=== PATIENT | female | born 1935 | race African-American/Black ===

== ENCOUNTER 2017-05-11 15:25 | Inpatient (IN) | payer MEDICARE, OTHER ==
[~2017-05-11] VITALS: Ht 170.2 cm; Wt 106.1 kg
[2017-05-11] MEDS ORDERED: BACLOFEN10 MG ORAL (16:08)
[2017-05-11] MEDS ORDERED: CARDIZEM CD240 MG ORAL (16:08)
[2017-05-11] MEDS ORDERED: NEURONTIN100 MG ORAL (16:08)
[2017-05-11] MEDS ORDERED: LEVALBUTER0.31 MG/3 IH (16:08)
[2017-05-11] MEDS ORDERED: DOCUSATE SODIU100 MG ORAL (16:08)
[2017-05-11] MEDS ORDERED: FUROSEMIDE40 MG ORAL (16:08)
[2017-05-11] MEDS ORDERED: SYNTHROID100 MCG ORAL (16:08)
[2017-05-11] MEDS ORDERED: CATAPRES0.1 MG ORAL (16:08)
[2017-05-11] MEDS ORDERED: ELIQUIS5 MG PO (16:08)
[2017-05-11] MEDS ORDERED: TYLENOL EXTRA500 MG ORAL (16:08)
[2017-05-11] MEDS ORDERED: ATORVASTATIN CA20 MG ORAL (16:08)
[2017-05-11] MEDS ORDERED: AMBIEN5 MG ORAL (16:08)
[2017-05-11] MEDS ORDERED: VITAMIN D400 INTLU ORAL (16:08)
[2017-05-11] MEDS ORDERED: SILDENAFIL20 MG ORAL (16:08)
[2017-05-11 16:25] LABS: BASOPHILS % (AUTO) 0.6 % (0.0-2.0); EOSINOPHILS % (AUTO) 3.5 % (0.0-3.0); HEMOGLOBIN 13.1 G/DL (12.0-16.0); LYMPHOCYTES % (AUTO) 17.7 % (20.0-45.0); MEAN CORPUSCULAR VOLUME 97 FL (80-99); MONOCYTES % (AUTO) 8.2 % (1.0-10.0); PLATELET COUNT 208 K/UL (150-450); RED BLOOD COUNT 4.33 M/UL (4.20-5.40); RED CELL DISTRIBUTION WIDTH 12.2 % (11.6-14.8); WHITE BLOOD COUNT 5.8 K/UL (4.8-10.8)
[2017-05-11 16:31] LABS: ANION GAP 8 mmol/L (5-15); BLOOD UREA NITROGEN 26 mg/dL (7-18); CALCIUM 9.2 MG/DL (8.5-10.1); CARBON DIOXIDE 31 MMOL/L (21-32); CHLORIDE 102 MMOL/L (98-107); POTASSIUM 3.9 MMOL/L (3.5-5.1); SODIUM 140 MMOL/L (136-145)
[2017-05-11 16:36] LABS: APPEARANCE,URINE CLEAR; BILIRUBIN, URINE NEGATIVE (NEGATIVE); COLOR,URINE PALE YELLOW; GLUCOSE, URINE (UA) NEGATIVE (NEGATIVE); KETONES,URINE NEGATIVE (NEGATIVE); LEUKOCYTE ESTERASE ,URINE 2+ (NEGATIVE); NITRITE,URINE NEGATIVE (NEGATIVE); PH,URINE 6 (4.5-8.0); PROTEIN,URINE NEGATIVE (NEGATIVE); UROBILINOGEN,URINE NORMAL MG/DL (0.0-1.0)
[2017-05-11 16:44] LABS: ALANINE AMINOTRANSFERASE 22 U/L (12-78); ALBUMIN 3.1 G/DL (3.4-5.0); ALBUMIN/GLOBULIN RATIO 0.7 (1.0-2.7); ALKALINE PHOSPHATASE 71 U/L (46-116); ASPARTATE AMINO TRANSFERASE 18 U/L (15-37); BILIRUBIN,TOTAL 0.1 MG/DL (0.2-1.0); CKMB < 0.5 NG/ML (0.0-3.6); CREATINE KINASE 51 U/L (26-308)
[2017-05-11 17:00] VITALS: BP 127/63
[2017-05-11] MEDS ORDERED: DiphenhydrAMINE 50mg/ml Inj IVP ONE (18:00)
[2017-05-11] MEDS ORDERED: Solu-MEDROL 125mg Inj IVP ONE (18:00)
[2017-05-11] MEDS ORDERED: Azithromycin 500 MG in NS 275 ML IV ONE (18:15)
--- NOTE | 2017-05-11 18:29 | Diagnostic Imaging Report ---
Indication: Cough Technique: XRAY Chest 1v Comparison: None Findings: Heart is enlarged. There is mild central pulmonary vascular congestion. There is no focal airspace consolidation. No pleural effusion or pneumothorax. No acute osseous abnormality seen. Impression: Cardiomegaly and mild central pulmonary vascular congestion. No definite focal airspace consolidation.
[2017-05-11] MEDS ORDERED: NS 275ml ONE (18:34)
[2017-05-11] MEDS ORDERED: Azithromycin 500mg Inj IV ONE (18:34)
[2017-05-11 19:10] VITALS: BP 122/65
[2017-05-11 20:49] VITALS: BP 130/49
[2017-05-11] MEDS ORDERED: Albuterol/Ipratropium 3ml neb HHN PRN (21:30)
[2017-05-11] MEDS ORDERED: Milk of Magnesia 30ml Ud ORAL PRN (21:30)
[2017-05-11] MEDS ORDERED: DiphenhydrAMINE 50mg/ml Inj IVP PRN (21:30)
--- NOTE | 2017-05-11 21:56 | Emergency Room Report ---
History of Present Illness General Chief Complaint: Upper Respiratory Illness Source: Patient Present Illness HPI 82-year-old female sent to ED for evaluation. Patient was noted to have abnormal chest x-ray a fpc. Was sent here. Patient notes having cough which is productive for the last several days. Denies fevers or chills. Denies chest pain or shortness of breath. Notes history of asthma but has been given breathing treatments. No other aggravating or leading factors. Denies any other associated symptoms Allergies: Coded Allergies: CEPHALEXIN (Verified Allergy, Unknown, 05/11/17) Patient History Past Medical History: HTN Past Surgical History: none Pertinent Family History: none Social History: Denies: smoking, alcohol use, drug use Now: No Immunizations: UTD Reviewed Nursing Documentation: PMH: Agreed, PSxH: Agreed Nursing Documentation-PMH Hx Cardiac Problems: No - HYPOTHYROIDISM Hx Hypertension: Yes Hx COPD: No - PE Hx Gastrointestinal Problems: No - CELLULITIS,GERD Hx Cerebrovascular Accident: No - FIBROMYALGIA Review of Systems All Other Systems: negative except mentioned in HPI Physical Exam Vital Signs Date Time Temp Pulse Resp B/P (MAP) Pulse Ox O2 Delivery O2 Flow Rate FiO2 05/11/17 15:06 97.7 88 20 148/66 99 Nasal Cannula 2.0 Sp02 EP Interpretation: reviewed, normal General Appearance: no apparent distress, alert, GCS 15, non-toxic Head: normocephalic, atraumatic Eyes: bilateral eye normal inspection, bilateral eye PERRL ENT: hearing grossly normal, normal pharynx, no angioedema, normal voice Neck: full range of motion, supple/symm/no masses Respiratory: chest non-tender, lungs clear, normal breath sounds, speaking full sentences Cardiovascular #1: regular rate, rhythm, no edema Cardiovascular #2: 2+ carotid (R), 2+ carotid (L), 2+ radial (R), 2+ radial (L) , 2+ dorsalis pedis (R), 2+ dorsalis pedis (L) Gastrointestinal: normal bowel sounds, non tender, soft, non-distended, no guarding, no rebound Rectal: deferred Genitourinary: normal inspection, no CVA tenderness Musculoskeletal: back normal, gait/station normal, normal range of motion, non- tender Neurologic: alert, oriented x3, responsive, motor strength/tone normal, sensory intact, speech normal Psychiatric: judgement/insight normal, memory normal, mood/affect normal, no suicidal/homicidal ideation Reflexes: 3+ bicep (R), 3+ bicep (L), 3+ tricep (R), 3+ tricep (L), 3+ knee (R) , 3+ knee (L) Skin: normal color, no rash, warm/dry, well hydrated Lymphatic: no adenopathy Medical Decision Making Diagnostic Impression: Primary Impression: Pneumonia Qualified Codes: J18.9 - Pneumonia, unspecified organism ER Course Hospital Course 82-year-old F presenting to ED with cough and crackles Differential diagnoses include: Pneumonia, CHF exacerbation, pneumothorax, fluid overload Clinical course Patient placed on stretcher. On cardiac cath rn. After initial history and physical, I ordered labs, IV fluids, EKG, chest x-ray, blood cultures, UA. Labs -no leukocytosis noted, hemoglobin/hematocrit stable, electrolytes ok okay , lactate okay troponins negative CXR - cardiomegaly. no acute infiltrates identified EKG - NSR, no acute ischemic changes noted Discussed findings with PMD Dr. Restrepo. states patient is having persistent cough/wheezing not relieved with medications at that facility. believes it is in the best interest of the patient to be admitted given levaquin intially developed allergic reaction around IV site. given benedryl, solumedrol switched to azithromycin Case discussed with Dr. Restrepo and he agreed to the patient to his service for further care and support I feel this is a highly complex case requiring extensive working including EKG/ Rhythm strip, Xray/CT/US, Blood/urine lab work, repeat exams while in ED, and administration of strong opiates/narcotics for pain control, admission to hospital or close patient follow up. Diagnosis - pneumonia Patient admitted to floor in serious condition Labs Test 05/11/17 16:00 05/11/17 16:18 White Blood Count 5.8 K/UL (4.8-10.8) Red Blood Count 4.33 M/UL (4.20-5.40) Hemoglobin 13.1 G/DL (12.0-16.0) Hematocrit 42.0 % (37.0-47.0) Mean Corpuscular Volume 97 FL (80-99) Mean Corpuscular Hemoglobin 30.2 PG (27.0-31.0) Mean Corpuscular Hemoglobin Concent 31.1 G/DL (32.0-36.0) Red Cell Distribution Width 12.2 % (11.6-14.8) Platelet Count 208 K/UL (150-450) Mean Platelet Volume 5.5 FL (6.5-10.1) Neutrophils (%) (Auto) 70.0 % (45.0-75.0) Lymphocytes (%) (Auto) 17.7 % (20.0-45.0) Monocytes (%) (Auto) 8.2 % (1.0-10.0) Eosinophils (%) (Auto) 3.5 % (0.0-3.0) Basophils (%) (Auto) 0.6 % (0.0-2.0) Sodium Level 140 MMOL/L (136-145) Potassium Level 3.9 MMOL/L (3.5-5.1) Chloride Level 102 MMOL/L (98-107) Carbon Dioxide Level 31 MMOL/L (21-32) Anion Gap 8 mmol/L (5-15) Blood Urea Nitrogen 26 mg/dL (7-18) Creatinine 1.0 MG/DL (0.55-1.30) Estimat Glomerular Filtration Rate mL/min (>60) Glucose Level 155 MG/DL (74-106) Lactic Acid Level 1.60 mmol/L (0.66-2.22) Calcium Level 9.2 MG/DL (8.5-10.1) Total Bilirubin 0.1 MG/DL (0.2-1.0) Aspartate Amino Transf (AST/SGOT) 18 U/L (15-37) Alanine Aminotransferase (ALT/SGPT) 22 U/L (12-78) Alkaline Phosphatase 71 U/L (46-116) Total Creatine Kinase 51 U/L (26-308) Creatine Kinase MB < 0.5 NG/ML (0.0-3.6) Creatine Kinase MB Relative Index 0.9 Troponin I 0.000 ng/mL (0.000-0.056) Pro-B-Type Natriuretic Peptide 53 pg/mL (0-125) Total Protein 7.3 G/DL (6.4-8.2) Albumin 3.1 G/DL (3.4-5.0) Globulin 4.2 g/dL Albumin/Globulin Ratio 0.7 (1.0-2.7) Urine Color Pale yellow Urine Appearance Clear Urine pH 6 (4.5-8.0) Urine Specific [place] 1.010 (1.005-1.035) Urine Protein Negative (NEGATIVE) Urine Glucose (UA) Negative (NEGATIVE) Urine Ketones Negative (NEGATIVE) Urine Occult Blood Negative (NEGATIVE) Urine Nitrite Negative (NEGATIVE) Urine Bilirubin Negative (NEGATIVE) Urine Urobilinogen Normal MG/DL (0.0-1.0) Urine Leukocyte Esterase 2+ (NEGATIVE) Urine RBC 0-2 /HPF (0 - 2) Urine WBC 2-4 /HPF (0 - 2) Urine Squamous Epithelial Cells Few /LPF (NONE/OCC) Urine Amorphous Sediment Few /LPF (NONE) Urine Bacteria Few /HPF (NONE) EKG Diagnostic Results Rate: normal Rhythm: NSR ST Segments: no acute changes ASA given to the pt in ED: No Rhythm Strip Diag. Results EP Interpretation: yes Rhythm: NSR, no PVC's, no ectopy Chest X-Ray Diagnostic Results Chest X-Ray Diagnostic Results : Chest X-Ray Ordered: Yes # of Views/Limited/Complete: 1 View Indication: Shortness of Breath EP Interpretation: Yes Interpretation: no consolidation, no effusion, no pneumothorax, no acute cardiopulmonary disease Impression: Other - cardiomegaly Electronically Signed by: Electronically signed by Black Chambers MD Last Vital Signs Date Time Temp Pulse Resp B/P (MAP) Pulse Ox O2 Delivery O2 Flow Rate FiO2 05/11/17 21:00 97.5 92 20 130/49 96 Room Air 2.0 Status: improved Disposition: ADMITTED INPATIENT Condition: Serious Referrals: BRIEN MCCLURE (PCP) BLACK CHAMBERS M.D. May 11, 2017 21:56
[2017-05-12] VITALS: BP 155/76
[2017-05-12 04:00] VITALS: BP 148/79
[2017-05-12 08:00] VITALS: BP 147/75
[2017-05-12] MEDS: Docusate 100mg cap ORAL SCH ×3 (09:02→21:49)
[2017-05-12] MEDS: Heparin 5000 units/ml inj SUBQ SCH ×2 (09:06→21:00)
[2017-05-12] MEDS ORDERED: Levalbuterol Inh UD 1.25mg/0.5ml HHN PRN (11:00)
[2017-05-12 12:00] VITALS: BP 147/83
[2017-05-12] MEDS ORDERED: Artificial Tears 1.4% Op Soln BOTH EYES PRN (13:00)
[2017-05-12] MEDS: Revatio 20mg tab ORAL SCH ×2 (14:44→18:21)
[2017-05-12 16:48] VITALS: BP 142/81
[2017-05-12] MEDS: Azithromycin 250 MG in D5W 275 ML IV SCH (17:42)
[2017-05-12] MEDS: guaiFENesin DM 100mg/5ml ORAL PRN (18:20)
--- NOTE | 2017-05-12 19:14 | Wound Nurse Progress Note ---
Wound RN Progress Note Wound Consult #1 Infected left and right big toe. Pt stated she was applying Betadine on both sites. Recommendation -Cleanse with saline, apply Betadine on both big toes, cover with Bordered gauze daily and PRN soiled/dislodged -Consult with Chemical Project Engineer for further evaluation and treatment. MARITZA SHER RN May 12, 2017 19:14
[2017-05-12 20:00] VITALS: BP 107/60
--- NOTE | 2017-05-12 20:45 | History and Physical Report ---
DATE OF ADMISSION: 05/11/2017 CHIEF COMPLAINT: Shortness of breath and yellow productive cough. HISTORY OF PRESENT ILLNESS: This is an 82-year-old female from [facility]. I was called yesterday about the patient saying developing shortness of breath and yellow productive cough. The patient was transferred to this hospital's emergency department for further evaluation and management. PAST MEDICAL HISTORY: 1. History of DVT. 2. Hypercholesterolemia. 3. Hypertensive cardiovascular disease. 4. Diastolic heart failure. 5. Hypothyroidism. 6. COPD. 7. History of pulmonary embolism. 8. Status post mastectomy due to breast cancer. 9. Mild type 2 diabetes mellitus. MEDICATIONS: Ambien, apixaban, Artificial Tears, atorvastatin, baclofen, Cardizem CD, clonidine, sodium docusate, Lasix, albuterol inhaler, Neurontin, sildenafil, Synthroid, Tylenol p.r.n., and vitamin D3. ALLERGIES: No known drug allergies. FAMILY HISTORY: Unremarkable. SOCIAL HISTORY: She lives in a halfway. HABITS: She is a nonsmoker and nondrinker. There is no history of illicit drug abuse. REVIEW OF SYSTEMS: HEENT: Hearing and eyesight are normal. ENDOCRINE: No history of diabetes. She has hypothyroidism. CARDIOVASCULAR: She denies chest pain or palpitations. GASTROINTESTINAL: Denies hematochezia, melena, hematemesis, diarrhea, or constipation. GENITOURINARY: She denies dysuria, frequency, urgency, or hematuria. NEUROLOGIC: She denies history of stroke. The patient is essentially bedridden and she states that this is due to fibromyalgia. PHYSICAL EXAMINATION: GENERAL: This is an elderly female, who is in no acute distress. VITAL SIGNS: Blood pressure 142/81, pulse 113, sinus tachycardia, respirations 18, and temperature 96.6. HEENT: The head is normocephalic and atraumatic. Pupils are equal, round, and reactive to light and accommodation consensually. NECK: Supple. Trachea midline. There was no lymphadenopathy or thyromegaly. LUNGS: Clear to auscultation and percussion. HEART: Regular rate and rhythm without rubs, murmurs, or gallops. ABDOMEN: Soft. Bowel sounds are active. EXTREMITIES: No clubbing, cyanosis, or edema. NEUROLOGIC: She is alert and oriented x4. Cranial nerves II through XII intact. LABORATORY AND ANCILLARY DATA: Influenza serology, negative. CBC within normal limits. Chemistry glucose 155. Albumin 3.1. Chest x-ray, negative. ASSESSMENT: 1. Early pneumonia. 2. History of deep vein thrombosis. 3. Hypercholesterolemia. 4. Hypertensive cardiovascular disease. 5. Diastolic heart failure. 6. Hypothyroidism. 7. Chronic obstructive pulmonary disease. 8. History of pulmonary embolism. 9. Status post mastectomy due to breast cancer. 10. Mild type 2 diabetes mellitus. PLAN: IV antibiotics. Tonya Ghosh M.D. DR: JOAN JOB#: [id number] CC:
[2017-05-12] MEDS ORDERED: Zolpidem 5mg tab ORAL PRN (21:00)
[2017-05-12] MEDS: Eliquis 2.5mg tablet ORAL SCH (21:49)
[2017-05-13] VITALS: BP 134/72
[2017-05-13 04:00] VITALS: BP 137/74
[2017-05-13] MEDS: guaiFENesin DM 100mg/5ml ORAL PRN (07:01)
[2017-05-13 08:00] VITALS: BP 142/71
[2017-05-13] MEDS: Furosemide 40mg tab ORAL SCH (08:38)
[2017-05-13] MEDS: Revatio 20mg tab ORAL SCH ×3 (08:38→17:38)
[2017-05-13] MEDS: Heparin 5000 units/ml inj SUBQ SCH ×2 (08:39→20:46)
[2017-05-13] MEDS: dilTIAZem HCl CD 240mg cap ORAL SCH (08:39)
[2017-05-13] MEDS: Docusate 100mg cap ORAL SCH ×4 (08:39→20:45)
--- NOTE | 2017-05-13 12:04 | General Progress Note ---
Assessment/Plan Assessment/Plan Acute Bronchitis on IV Abx, improving. DC to SNF. Continue IV Abx. Subjective Allergies: Coded Allergies: CEPHALEXIN (Verified Allergy, Unknown, 05/11/17) Subjective Still coughing. Not SOB. Objective Last 24 Hour Vital Signs Date Time Temp Pulse Resp B/P (MAP) Pulse Ox O2 Delivery O2 Flow Rate FiO2 05/13/17 08:39 85 137/74 05/13/17 08:00 97.6 86 20 142/71 97 05/13/17 07:09 85 20 Nasal Cannula 2.0 05/13/17 04:00 96.7 92 18 137/74 96 Room Air 05/12/17 20:29 81 20 Nasal Cannula 2.0 05/12/17 20:00 96.6 104 18 107/60 94 Room Air 05/12/17 16:48 96.6 113 18 142/81 94 Intake and Output 05/12/17 05/13/17 19:00 07:00 Intake Total 240 ml 420 ml Balance 240 ml 420 ml Intake Oral 240 ml 420 ml # Voids 3 3 Height (Feet): 5 Height (Inches): 7.00 Weight (Pounds): 234 Objective CV RR Lungs CTA Abd SNT. BS + E No cce BRIEN MCCLURE May 13, 2017 12:04
[2017-05-13] MEDS ORDERED: AZITHROMYC100 MG/5 M ORAL (12:09)
[2017-05-13 16:00] VITALS: BP 116/61
[2017-05-13] MEDS: Azithromycin 250 MG in D5W 275 ML IV SCH (17:38)
[2017-05-13 20:00] VITALS: BP 128/67
[2017-05-13] MEDS: Eliquis 2.5mg tablet ORAL SCH (20:45)
[2017-05-14] VITALS: BP 134/72
[2017-05-14 04:00] VITALS: BP 148/71
[2017-05-14] MEDS: Docusate 100mg cap ORAL SCH ×2 (08:18→08:24)
[2017-05-14] MEDS: Revatio 20mg tab ORAL SCH ×2 (08:22→13:38)
[2017-05-14] MEDS: Furosemide 40mg tab ORAL SCH (08:22)
[2017-05-14] MEDS: dilTIAZem HCl CD 240mg cap ORAL SCH (08:23)
[2017-05-14] MEDS: Heparin 5000 units/ml inj SUBQ SCH (08:24)
[2017-05-14 08:45] VITALS: BP 144/73
[2017-05-14 11:47] VITALS: BP 147/68
[2017-05-14] MEDS ORDERED: NS 275ml ONE (15:14)
--- NOTE | 2017-05-14 15:30 | Cardiology Report ---
APPROVED REPORT EKG Measurement Heart [id number] Normal sinus rhythm Left axis deviation Voltage criteria for left ventricular hypertrophy Abnormal ECG
--- NOTE | 2017-05-16 13:00 | Discharge Summary ---
Discharge Summary Hospital Course Date of Admission May 11, 2017 at 16:44 Date of Discharge May 14, 2017 at 15:00 Admitting Diagnosis PNEUMONIA HPI Cheryl Mariscal is a 82 year old female who was admitted on May 11, 2017 at 16: 44 for Pneumonia Hospital Course dc summary #[id number] Discharge Medications New Medications: Azithromycin (Azithromycin) 100 Mg/5 Ml Susp.recon 100 MG ORAL DAILY for 7 Days, ML Continued Medications: Acetaminophen* (Tylenol Extra Strength*) 500 Mg Tablet 1000 MG ORAL Q6H PRN for Mild Pain/Temp > 100.5, TAB 0 Refills Apixaban (Eliquis) 5 Mg Tablet 10 MG PO QHS, TAB Atorvastatin Calcium* (Atorvastatin Calcium*) 20 Mg Tablet 10 MG ORAL BEDTIME, TAB Clonidine Hcl* (Catapres*) 0.1 Mg Tablet 0.1 MG ORAL EVERY 8 HOURS, TAB Diltiazem Hcl* (Cardizem Cd*) 240 Mg Cap.er.24h 240 MG ORAL DAILY, #30 CAP 0 Refills Docusate Sodium* (Docusate Sodium*) 100 Mg Capsule 100 MG ORAL TWICE A DAY, CAP Gabapentin* (Neurontin*) 100 Mg Capsule 100 MG ORAL THREE TIMES A DAY, #15 CAP 0 Refills Levalbuterol Hcl (Levalbuterol Hcl) 0.31 Mg/3 Ml Vial.neb 0.31 MG IH, VIAL Levothyroxine Sodium* (Synthroid*) 100 Mcg Tablet 100 MCG ORAL DAILY, TAB Take in the morning on an empty stomach, at least 30 minutes before food. Sildenafil Citrate (Sildenafil) 20 Mg Tablet 20 MG ORAL THREE TIMES A DAY, TAB 0 Refills Vitamin D (Vitamin D3) 400 Unit Tablet 5000 UNITS ORAL DAILY, TAB Zolpidem Tartrate* (Ambien*) 5 Mg Tablet 5 MG ORAL BEDTIME PRN for Insomnia, TAB Discontinued Medications: Baclofen* (Baclofen*) 10 Mg Tablet 10 MG ORAL THREE TIMES A DAY, TAB Furosemide* (Lasix*) 40 Mg Tablet 40 MG ORAL DAILY, TAB Discharge Condition Upon Discharge: stable Discharge Disposition Patient was discharged to SNF/Subacute Facility(03) Discharge Diagnoses: Discharge Instructions Discharge Instructions Special Instructions I have been assigned to complete a D/C Summary on this account. I was not involved in the patient management Kiersten Gastelum NP ([facility]) May 16, 2017 13:00
--- NOTE | 2017-05-17 11:45 | Discharge Summary ---
DATE OF ADMISSION: 05/11/2017 DATE OF DISCHARGE: 05/14/2017 REASON FOR ADMISSION: 82-year-old female with past medical history significant for hypertension, hypertensive cardiovascular disease, hypercholesteremia, history of DVT and PE, hypothyroidism, chronic obstructive pulmonary disease, diastolic heart failure, breast cancer, status post mastectomy, type 2 diabetes mellitus mild, presented from the care home facility for evaluation. The patient developed shortness of breath and productive cough with yellow color phlegm. No chest pain. Influenza rapid screen test was negative. CBC revealed no leukocytosis. Blood sugar -155. Albumin -3.1. Chest x-ray negative for any acute cardiopulmonary disease. The patient was admitted with diagnosis of possible early pneumonia, history of DVT, history of PE, hypertensive cardiovascular disease, hypercholesteremia, diastolic heart failure, hypothyroidism, chronic obstructive pulmonary disease, status post mastectomy due to breast cancer, and mild type 2 diabetes mellitus. HOSPITAL COURSE: The patient was admitted. The patient was started on empiric IV antibiotics. Blood culture negative. Venous duplex of bilateral lower extremities revealed no evidence of acute DVT. Troponin negative. EKG revealed normal sinus rate. No acute ischemic changes, left axis deviation present. The patient was on anticoagulation with Eliquis, continued from the care home facility. No evidence of bleeding. The patient was on diuresis, volumes and cardiorenal parameters were closely monitored. Statin was continued. Blood pressure was managed with calcium channel lena. Levothyroxine dose was continued. Supplemental oxygen and pulmonary toilet provided. Antitussive provided as needed. Bowel regimen instituted. The patient symptomatically improved with IV antibiotics. The patient was stable for discharge back to care home [facility]. FINAL DIAGNOSES: 1. Acute bronchitis. 2. History of deep venous thrombosis and pulmonary embolism. 3. Hypertensive cardiovascular disease. 4. Hypercholesterolemia. 5. Diastolic heart failure. 6. Hypothyroidism. 7. Chronic obstructive pulmonary disease. 8. Status post mastectomy secondary to breast cancer. 9. Type 2 diabetes mellitus/mild. DISCHARGE INSTRUCTIONS: The patient discharged to care home facility. FOLLOWUP: Follow up with medical doctor at the facility. DISCHARGE MEDICATIONS: See medication reconciliation list. Pagiel Shechter, M.D. I have been assigned to dictate discharge summary on this account and I was not involved in the patient's management. Kiersten Gastelum N.P. ([place]tein) DR: MINH JOB#: [id number] CC: BON
--- NOTE | 2017-05-29 20:37 | Diagnostic Imaging Report ---
APPROVED REPORT CPT Code: 78848 Present Symptoms Lower Extremity Pain: Patient was unable to tolerate bilateral exam at this time. RIGHT LEG: Venous imaging reveals a patent deep venous system. There is no evidence of thrombus within the femoral, popliteal or tibial segments. The greater saphenous vein is also within normal limits. Doppler indicates normal spontaneous flow within these segments.
== END 2017-05-14 15:00 | DRG 202 ==
LOC: EDBD 15:25 → EMR 15:25 → EDBEDREQ 15:29 → 4W 16:44 → CANBEDREQ 17:28 → EDBEDREQ 18:45
DX: J20.9 Acute bronchitis, unspecified (principal); I50.30 Unspecified diastolic (congestive) heart failure; I11.0 Hypertensive heart disease with heart failure; J44.9 Chronic obstructive pulmonary disease, unspecified; E11.9 Type 2 diabetes mellitus without complications; E03.9 Hypothyroidism, unspecified; Z86.718 Personal history of other venous thrombosis and embolism; E78.00 Pure hypercholesterolemia, unspecified; Z86.711 Personal history of pulmonary embolism; Z85.3 Personal history of malignant neoplasm of breast; Z90.10 Acquired absence of unspecified breast and nipple; M79.7 Fibromyalgia; K21.9 Gastro-esophageal reflux disease without esophagitis; Z79.01 Long term (current) use of anticoagulants
CPT/HCPCS: 36415; 71045; 80053; 81003; 82550; 82553; 83605; 83880; 84484; 85025; 86710; 87040; 87081; 93005; 93971; 94640; 94664; 99285; J7620

== ENCOUNTER 2017-10-08 20:02 | Inpatient (IN) | payer MEDICARE, OTHER ==
[~2017-10-08] VITALS: Ht 170.2 cm; Wt 107.0 kg
[~2017-10-08 20:02] MED LIST: AMBIEN5 MG ORAL; ATORVASTATIN CA20 MG ORAL; AZITHROMYC100 MG/5 M ORAL; BACLOFEN10 MG ORAL; CARDIZEM CD240 MG ORAL; CATAPRES0.1 MG ORAL; DOCUSATE SODIU100 MG ORAL; ELIQUIS5 MG PO; FUROSEMIDE40 MG ORAL; LEVALBUTER0.31 MG/3 IH; NEURONTIN100 MG ORAL; SILDENAFIL20 MG ORAL; SYNTHROID100 MCG ORAL; TYLENOL EXTRA500 MG ORAL; VITAMIN D400 INTLU ORAL
[2017-10-08 20:05] VITALS: BP 139/63
[2017-10-08] MEDS ORDERED: CATAPRES0.1 MG ORAL (20:20)
[2017-10-08] MEDS ORDERED: PREPARATION H1 EAC1 TP (20:20)
[2017-10-08] MEDS ORDERED: FLEET ENEMA133 ML RECTAL (20:20)
[2017-10-08] MEDS ORDERED: BISACODYL10 MG/30 M RC (20:20)
[2017-10-08] MEDS ORDERED: DEBROX15 M1 BOTH EARS (20:20)
[2017-10-08] MEDS ORDERED: SENNA8.6 M2 PO (20:20)
[2017-10-08] MEDS ORDERED: DOCUSATE SODIU100 MG ORAL (20:20)
[2017-10-08] MEDS ORDERED: LEVALBUTER0.31 MG/3 IH (20:20)
[2017-10-08] MEDS ORDERED: NEURONTIN100 MG ORAL (20:20)
[2017-10-08] MEDS ORDERED: MILK OF MA400 MG/51 ORAL (20:20)
[2017-10-08] MEDS ORDERED: ACETAMINOPHEN325 M1 ORAL (20:22)
--- NOTE | 2017-10-08 20:43 | Emergency Room Report ---
History of Present Illness General Chief Complaint: Generalized Weakness Source: Patient, EMS (Antonio Pink M.D.) Present Illness HPI Patient presents with decreased mentation at this time. He is more alert. The patient denies any pain at this time. She denies dyspnea. Paramedics felt that this might be related to opiate ingestion. Accu-Chek was normal. (Antonio Pink M.D.) Allergies: Coded Allergies: CEPHALEXIN (Verified Allergy, Unknown, 05/11/17) Patient History Past Medical History: see triage record Social History Narrative SNF Last Menstrual Period: na Reviewed Nursing Documentation: PMH: Agreed; PSxH: Agreed (Antonio Pink M.D.) Nursing Documentation-PMH Hx Hypertension: Yes - hypothyroidism, hyperlipidemia Hx COPD: Yes Hx Diabetes: Yes - Type 2 DM Hx Cancer: Yes - Breast Hx Cerebrovascular Accident: No - FIBROMYALGIA (Antonio Pink M.D.) Physical Exam Vital Signs Date Time Temp Pulse Resp B/P (MAP) Pulse Ox O2 Delivery O2 Flow Rate FiO2 10/08/17 19:52 98.7 107 18 166/82 96 Nasal Cannula 3.0 98.8 Sp02 EP Interpretation: reviewed, normal General Appearance: no apparent distress, Chronically Ill, Stupor Head: normocephalic, atraumatic Eyes: bilateral eye normal inspection, bilateral eye PERRL ENT: moist mucus membranes Neck: supple Respiratory: lungs clear, decreased breath sounds Cardiovascular #1: regular rate, rhythm, edema Cardiovascular #2: 2+ radial (R) Gastrointestinal: normal inspection, normal bowel sounds, non tender, no mass, non-distended, overweight Musculoskeletal: back normal, normal range of motion, no calf tenderness, Neel 's Sign negative Neurologic: responsive, DTRs symmetric, motor weakness - all 4 Psychiatric: depressed affect Skin: warm/dry, other - sallo and possible slight cyanosis (Antonio Pink M.D.) Medical Decision Making Diagnostic Impression: Primary Impression: Stupor Additional Impressions: Hypoxia Pneumonia Qualified Codes: J18.1 - Lobar pneumonia, unspecified organism ER Course Patient presents with altered mentation and hypoxia. Differential includes congestive heart failure, acute myocardial infarction, pneumonia, bronchitis, CO2 retention and respiratory failure amongst others. The patient will be evaluated with EKG, chest x-ray, blood gas and labs. She'll be treated with breathing treatments, Solu-Medrol. She's afebrile and antibiotics are not initially ordered. If her white count is elevated I will consider starting dose. A Sheets catheter was ordered. Due to altered mentation, if not improvement, will need admission for continued cardiac and neurologic observation. Patient slightly improved on oxygen. ABG - adequate oxygenation and resp compensation. No need for BIPAP at this time. Labs pending at time of transfer of care to Dr. Fulton. (Antonio Pink M.D.) ER Course Please refer to the initial note for the history exam and presentation Patient is a fairly complex patient with multiple differential to consideration including but not limited to cardiac cardiopulmonary and vascular emergencies Patient's x-ray shows concerning right-sided developing pneumonia Patient had previous episode of hypoxia requiring oxygenation ABG is somewhat reassuring otherwise patient provided with antibiotics and requires further inpatient care Labs Test 10/08/17 20:30 10/08/17 20:50 10/08/17 21:43 White Blood Count 5.8 K/UL (4.8-10.8) Red Blood Count 4.21 M/UL (4.20-5.40) Hemoglobin 12.9 G/DL (12.0-16.0) Hematocrit 39.8 % (37.0-47.0) Mean Corpuscular Volume 95 FL (80-99) Mean Corpuscular Hemoglobin 30.7 PG (27.0-31.0) Mean Corpuscular Hemoglobin Concent 32.5 G/DL (32.0-36.0) Red Cell Distribution Width 12.8 % (11.6-14.8) Platelet Count 166 K/UL (150-450) Mean Platelet Volume 6.0 FL (6.5-10.1) Neutrophils (%) (Auto) 80.6 % (45.0-75.0) Lymphocytes (%) (Auto) 10.0 % (20.0-45.0) Monocytes (%) (Auto) 7.6 % (1.0-10.0) Eosinophils (%) (Auto) 1.3 % (0.0-3.0) Basophils (%) (Auto) 0.6 % (0.0-2.0) Prothrombin Time 10.3 SEC (9.30-11.50) Prothromb Time International Ratio 1.0 (0.9-1.1) Activated Partial Thromboplast Time 29 SEC (23-33) Sodium Level 138 MMOL/L (136-145) Potassium Level 4.0 MMOL/L (3.5-5.1) Chloride Level 100 MMOL/L (98-107) Carbon Dioxide Level 32 MMOL/L (21-32) Anion Gap 6 mmol/L (5-15) Blood Urea Nitrogen 16 mg/dL (7-18) Creatinine 0.9 MG/DL (0.55-1.30) Estimat Glomerular Filtration Rate mL/min (>60) Glucose Level 130 MG/DL (74-106) Lactic Acid Level 1.70 mmol/L (0.4-2.0) Calcium Level 9.6 MG/DL (8.5-10.1) Magnesium Level 2.1 MG/DL (1.8-2.4) Total Bilirubin 0.1 MG/DL (0.2-1.0) Aspartate Amino Transf (AST/SGOT) 18 U/L (15-37) Alanine Aminotransferase (ALT/SGPT) 32 U/L (12-78) Alkaline Phosphatase 61 U/L (46-116) Ammonia < 10 umol/L (11-32) Total Creatine Kinase 37 U/L (26-308) Troponin I 0.000 ng/mL (0.000-0.056) Pro-B-Type Natriuretic Peptide 49 pg/mL (0-125) Total Protein 7.1 G/DL (6.4-8.2) Albumin 3.2 G/DL (3.4-5.0) Globulin 3.9 g/dL Albumin/Globulin Ratio 0.8 (1.0-2.7) Thyroid Stimulating Hormone (TSH) 1.640 uiU/mL (0.358-3.740) Arterial Blood pH 7.382 (7.350-7.450) Arterial Blood Partial Pressure CO2 53.9 mmHg (35.0-45.0) Arterial Blood Partial Pressure O2 82.0 mmHg (75.0-100.0) Arterial Blood HCO3 31.3 mmol/L (22.0-26.0) Arterial Blood Oxygen Saturation 96.0 % (92.0-98.0) Arterial Blood Base Excess 4.9 Dung Test Positive (Gabriela Fulton DO) EKG Diagnostic Results Rate: normal Rhythm: NSR ST Segments: no acute changes (Antonio Pink M.D.) Rhythm Strip Diag. Results EP Interpretation: yes Rhythm: NSR, no PVC's, no ectopy (Antonio Pink M.D.) EP Interpretation: yes Rate: 77 Rhythm: NSR, no PVC's, no ectopy (Gabriela Fulton DO) Chest X-Ray Diagnostic Results Chest X-Ray Diagnostic Results : Chest X-Ray Ordered: Yes # of Views/Limited/Complete: 1 View Indication: Other EP Interpretation: Yes Interpretation: no effusion, no pneumothorax, other - poor inspiration Impression: Other Electronically Signed by: Electronically signed by Antonio Pink MD (Antonio Pink M.D.) Chest X-Ray Diagnostic Results : Chest X-Ray Ordered: Yes # of Views/Limited/Complete: 1 View Indication: Shortness of Breath EP Interpretation: Yes Interpretation: no pneumothorax, other Impression: Other - Developing right-sided pneumonia Electronically Signed by: Gabriela Fulton DO (Gabriela Fulton DO) CT/MRI/US Diagnostic Results CT/MRI/US Diagnostic Results : Impression CT head: No acute disease (Gabriela Fulton DO) Status: improved (Antonio Pink M.D.) Status: improved (Gabriela Fulton DO) Disposition: ADMITTED INPATIENT Condition: Serious Antonio Pink M.D. Oct 08, 2017 20:43 Gabriela Fulton DO Oct 08, 2017 22:25
[2017-10-08 21:10] LABS: AMMONIA < 10 umol/L (11-32); ANION GAP 6 mmol/L (5-15); BLOOD UREA NITROGEN 16 mg/dL (7-18); CALCIUM 9.6 MG/DL (8.5-10.1); CARBON DIOXIDE 32 MMOL/L (21-32); CHLORIDE 100 MMOL/L (98-107); CREATININE 0.9 MG/DL (0.55-1.30); SODIUM 138 MMOL/L (136-145)
[2017-10-08 21:21] LABS: ALANINE AMINOTRANSFERASE 32 U/L (12-78); ALBUMIN 3.2 G/DL (3.4-5.0); ALBUMIN/GLOBULIN RATIO 0.8 (1.0-2.7); ALKALINE PHOSPHATASE 61 U/L (46-116); ASPARTATE AMINO TRANSFERASE 18 U/L (15-37); BILIRUBIN,TOTAL 0.1 MG/DL (0.2-1.0); CREATINE KINASE 37 U/L (26-308)
--- NOTE | 2017-10-08 21:37 | Diagnostic Imaging Report ---
EXAM: CT Head Without Intravenous Contrast CLINICAL HISTORY: ALOC TECHNIQUE: Axial computed tomography images of the head/brain without intravenous contrast. CTDI is 70.53 mGy and DLP is 1245.89 MGy-cm. One or more of the following dose reduction techniques were used: automated exposure control, adjustment of the mA and/or kV according to patient size, use of iterative reconstruction technique. COMPARISON: No relevant prior studies available. FINDINGS: Brain: No acute intracranial abnormality. Minimal age-related parenchymal volume loss, likely age appropriate. Nonspecific minimal white matter hypodensity, which is statistically secondary likely to chronic vascular ischemic change. No hemorrhage. Ventricles: Unremarkable. No ventriculomegaly. Bones/joints: Unremarkable. No acute fracture. Soft tissues: Unremarkable. Sinuses: Unremarkable as visualized. No acute sinusitis. Mastoid air cells: Unremarkable as visualized. No mastoid effusion. IMPRESSION: 1. No acute intracranial pathology. 2. Chronic age-related findings above.
--- NOTE | 2017-10-08 21:42 | Diagnostic Imaging Report ---
EXAM: XR Chest, 1 View CLINICAL HISTORY: ALOC TECHNIQUE: Frontal view of the chest. COMPARISON: Chest radiograph 05/11/17 FINDINGS: Lungs: New diffuse hazy right lung attenuation could be secondary to low lung volumes, or could represent developing infection. Low lung volume with bronchovascular crowding. Pleural space: Unremarkable. No pneumothorax. Heart: Unremarkable. No cardiomegaly. Mediastinum: Unremarkable. Bones/joints: Unremarkable. Soft tissues: Right axillary surgical clips unchanged. IMPRESSION: 1. New diffuse hazy right lung attenuation could be secondary to low lung volumes, or could represent developing infection. 2. Recommend formal frontal and lateral chest radiographs to further evaluate the right lung finding.
[2017-10-08 21:55] LABS: BASOPHILS % (AUTO) 0.6 % (0.0-2.0); EOSINOPHILS % (AUTO) 1.3 % (0.0-3.0); HEMATOCRIT 39.8 % (37.0-47.0); HEMOGLOBIN 12.9 G/DL (12.0-16.0); MEAN CORPUSCULAR VOLUME 95 FL (80-99); MONOCYTES % (AUTO) 7.6 % (1.0-10.0); NEUTROPHILS % (AUTO) 80.6 % (45.0-75.0); PLATELET COUNT 166 K/UL (150-450); RED BLOOD COUNT 4.21 M/UL (4.20-5.40); RED CELL DISTRIBUTION WIDTH 12.8 % (11.6-14.8); WHITE BLOOD COUNT 5.8 K/UL (4.8-10.8)
[2017-10-08 22:10] VITALS: BP 140/68
[2017-10-08 22:24] LABS: APPEARANCE,URINE CLEAR; BILIRUBIN, URINE NEGATIVE (NEGATIVE); COLOR,URINE PALE YELLOW; GLUCOSE, URINE (UA) NEGATIVE (NEGATIVE); KETONES,URINE NEGATIVE (NEGATIVE); LEUKOCYTE ESTERASE ,URINE 1+ (NEGATIVE); NITRITE,URINE NEGATIVE (NEGATIVE); PH,URINE 6 (4.5-8.0); PROTEIN,URINE NEGATIVE (NEGATIVE); UROBILINOGEN,URINE NORMAL MG/DL (0.0-1.0)
[2017-10-08 23:30] VITALS: BP 148/71
[2017-10-09] VITALS: BP 165/78
[2017-10-09] MEDS ORDERED: Fleet's Enema 133ml RECTAL ONE (02:45)
[2017-10-09] MEDS ORDERED: Acetaminophen 500mg (ES) tab ORAL PRN (02:45)
[2017-10-09] MEDS ORDERED: Sennosides 8.6mg ORAL PRN (02:45)
[2017-10-09] MEDS ORDERED: Milk of Magnesia 30ml Ud ORAL PRN (02:45)
[2017-10-09] MEDS ORDERED: Levalbuterol Inh UD 1.25mg/0.5ml HHN ONE ×2 (02:45)
[2017-10-09] MEDS ORDERED: Zolpidem 5mg tab ORAL PRN (02:45)
[2017-10-09 04:00] VITALS: BP 140/68
[2017-10-09 08:00] VITALS: BP 115/70
[2017-10-09] MEDS ORDERED: Albuterol/Ipratropium 3ml neb HHN PRN (08:45)
[2017-10-09] MEDS: Docusate 100mg cap ORAL SCH ×2 (08:47→17:41)
[2017-10-09] MEDS: Vitamin D 1000 IU Tab ORAL SCH (08:47)
[2017-10-09] MEDS: Eliquis 2.5mg tablet ORAL SCH ×2 (08:47→17:41)
[2017-10-09] MEDS: dilTIAZem HCl CD 240mg cap ORAL SCH (08:48)
[2017-10-09] MEDS ORDERED: Revatio 20mg tab ORAL SCH (09:00)
[2017-10-09] MEDS ORDERED: Furosemide 40mg tab ORAL SCH (09:00)
[2017-10-09] MEDS ORDERED: Azithromycin 200mg/5ml 30ml Susp ORAL SCH (09:00)
[2017-10-09] MEDS ORDERED: Docusate 250mg cap ORAL SCH (09:00)
[2017-10-09] MEDS ORDERED: Carbamide Peroxide 6.5% Ot Sol 15ML BOTH EARS PRN (09:00)
[2017-10-09 12:00] VITALS: BP 118/51
[2017-10-09 16:00] VITALS: BP 126/66
[2017-10-09 20:00] VITALS: BP 126/75
[2017-10-10] VITALS (8 sets, daily range): BP systolic 133–194; BP diastolic 67–96
--- NOTE | 2017-10-10 08:31 | History and Physical Report ---
DATE OF ADMISSION: 10/08/2017 CHIEF COMPLAINT: Generalized weakness. HISTORY OF PRESENT ILLNESS: This is an 82-year-old female from [facility], who was transferred to this hospital ER due to generalized weakness. The patient has multiple medical problems and is on multiple medications. She is a very poor historian. Currently, she is confused and unable to give any consistent information. PAST MEDICAL HISTORY: 1. Organic brain syndrome. 2. Paraplegia, etiology unclear. 3. "Fibromyalgia." 4. Hypertension. 5. Chronic obstructive pulmonary disease. 6. Hypothyroidism. MEDICATIONS: Ambien, apixaban, atorvastatin, Cardizem, clonidine, Debrox solution, sodium docusate, Dulcolax, Fleet enema, albuterol inhalation, milk of magnesia, Neurontin, Preparation H suppositories, senna, sildenafil, Synthroid, Tylenol p.r.n., and vitamin D3. ALLERGIES: No known drug allergies. FAMILY HISTORY: Unable to obtain due to mental status. SOCIAL HISTORY: Unable to obtain due to mental status. REVIEW OF SYSTEMS: Unable to obtain due to mental status. PHYSICAL EXAMINATION: GENERAL: This is an elderly female, who is bed ridden, morbidly obese, unable to get out of bed. VITAL SIGNS: Blood pressure is 115/70, pulse 84, respirations 18, and temperature 97.2. HEENT: The head is normocephalic and atraumatic. Pupils are equal, round, and reactive to light condition consensually. NECK: Supple. Trachea midline. No lymphadenopathy or thyromegaly. LUNGS: Clear to auscultation and percussion. HEART: Regular rate and rhythm without rubs, murmurs, or gallops. ABDOMEN: Pendulous, soft, and nontender. Bowel sounds were active. EXTREMITIES: No clubbing, cyanosis, or edema. NEUROLOGIC: She is confused. There were no gross focal findings. LABORATORY DATA: CBC within normal limits. Serum chemistry, glucose 130, otherwise within normal limits. Albumin is 3.2. Urine tox screen is negative. Urinalysis, 10 to 15 white blood cells, otherwise, within normal limits. Chest x-ray, low quality chest x-ray. Head CT, no acute findings. ASSESSMENT: Altered level of consciousness, etiology unclear, rule out urinary tract infection, rule out other etiologies. PLAN: 1. IV antibiotics. 2. Continue snf medications with modifications. 3. Elimination of some of the medications that may cause altered level of consciousness. Tonya Ghosh M.D. DR: OMAR JOB#: [id number] CC: BON
[2017-10-10] MEDS: Vitamin D 1000 IU Tab ORAL SCH (08:39)
[2017-10-10] MEDS: Eliquis 2.5mg tablet ORAL SCH ×2 (08:39→20:51)
[2017-10-10] MEDS: Docusate 100mg cap ORAL SCH ×2 (08:40→18:07)
[2017-10-10] MEDS: dilTIAZem HCl CD 240mg cap ORAL SCH (08:40)
[2017-10-10] MEDS ORDERED: Acetaminophen 500mg (ES) tab ORAL PRN (15:00)
[2017-10-10] MEDS ORDERED: Sennosides 8.6mg ORAL PRN (15:00)
[2017-10-10] MEDS ORDERED: Albuterol/Ipratropium 3ml neb HHN PRN (15:00)
[2017-10-10] MEDS ORDERED: Milk of Magnesia 30ml Ud ORAL PRN (15:00)
[2017-10-10] MEDS ORDERED: Eliquis 2.5mg tablet ORAL SCH (18:00)
--- NOTE | 2017-10-10 20:41 | General Progress Note ---
Assessment/Plan Problem List: (1) UTI (urinary tract infection) ICD Codes: N39.0 - Urinary tract infection, site not specified SNOMED: 42035038 (2) Dementia ICD Codes: F03.90 - Unspecified dementia without behavioral disturbance SNOMED: 78888147 (3) Hypertension, benign ICD Codes: I10 - Essential (primary) hypertension SNOMED: 27479719 (4) Altered consciousness ICD Codes: R40.4 - Transient alteration of awareness SNOMED: 9331752 Assessment/Plan bp to 190+sys, meds ordered, alert bedridden Subjective Constitutional: Reports: weakness Cardiovascular: Reports: no symptoms Respiratory: Reports: no symptoms Gastrointestinal/Abdominal: Reports: no symptoms Neurologic/Psychiatric: Reports: pre-existing deficit Endocrine: Reports: no symptoms Allergies: Coded Allergies: CEPHALEXIN (Verified Allergy, Unknown, 05/11/17) Objective Last 24 Hour Vital Signs Date Time Temp Pulse Resp B/P (MAP) Pulse Ox O2 Delivery O2 Flow Rate FiO2 10/10/17 16:00 98.1 87 20 151/70 96 98.1 10/10/17 16:00 96 Nasal Cannula 3.0 10/10/17 12:00 97.8 84 20 144/71 94 Nasal Cannula 3.0 32 97.8 10/10/17 09:38 96.8 10/10/17 08:40 95 Nasal Cannula 3.0 32 10/10/17 08:40 Nasal Cannula 3.0 32 10/10/17 08:40 89 20 Nasal Cannula 3.0 32 10/10/17 08:40 89 174/76 10/10/17 08:39 96.8 10/10/17 08:00 97.7 89 20 142/74 94 Nasal Cannula 3.0 32 97.7 10/10/17 08:00 86 10/10/17 04:00 80 10/10/17 04:00 96.8 83 20 140/67 94 Nasal Cannula 3.0 96.8 10/10/17 00:00 79 10/10/17 00:00 98.0 81 20 133/67 95 Nasal Cannula 3.0 98.0 Intake and Output 10/09/17 10/10/17 19:00 07:00 Intake Total 850 ml Output Total 1100 ml 1700 ml Balance -250 ml -1700 ml Intake Oral 850 ml Output Urine Total 1100 ml 1700 ml # Bowel Movements 2 1 Height (Feet): 5 Height (Inches): 7.00 Weight (Pounds): 237 General Appearance: obese EENT: normal ENT inspection Neck: normal alignment, supple Cardiovascular: regular rhythm Respiratory/Chest: lungs clear Abdomen: non tender, soft Edema: no edema noted Arm (L), no edema noted Arm (R), no edema noted Leg (L), no edema noted Leg (R), no edema noted Pedal (L), no edema noted Pedal (R), no edema noted Generalized Neurologic: alert, disoriented HAZEL VILLA Oct 10, 2017 20:41
[2017-10-10] MEDS: Losartan 50mg tab ORAL SCH (20:51)
[2017-10-10] MEDS ORDERED: Zolpidem 5mg tab ORAL PRN (21:00)
[2017-10-11 00:02] VITALS: BP 165/74
[2017-10-11 04:37] VITALS: BP 153/85
[2017-10-11 07:18] LABS: ANION GAP 6 mmol/L (5-15); BLOOD UREA NITROGEN 15 mg/dL (7-18); CALCIUM 9.1 MG/DL (8.5-10.1); CARBON DIOXIDE 32 MMOL/L (21-32); CHLORIDE 103 MMOL/L (98-107); CREATININE 0.9 MG/DL (0.55-1.30); POTASSIUM 3.7 MMOL/L (3.5-5.1); SODIUM 141 MMOL/L (136-145)
[2017-10-11 07:27] LABS: BASOPHILS % (AUTO) 0.4 % (0.0-2.0); EOSINOPHILS % (AUTO) 2.6 % (0.0-3.0); HEMATOCRIT 38.1 % (37.0-47.0); HEMOGLOBIN 12.7 G/DL (12.0-16.0); LYMPHOCYTES % (AUTO) 17.1 % (20.0-45.0); MEAN CORPUSCULAR VOLUME 94 FL (80-99); MONOCYTES % (AUTO) 8.2 % (1.0-10.0); NEUTROPHILS % (AUTO) 71.7 % (45.0-75.0); PLATELET COUNT 185 K/UL (150-450); RED BLOOD COUNT 4.05 M/UL (4.20-5.40); RED CELL DISTRIBUTION WIDTH 12.6 % (11.6-14.8); WHITE BLOOD COUNT 7.1 K/UL (4.8-10.8)
[2017-10-11 08:00] VITALS: BP 119/66
[2017-10-11] MEDS: Docusate 100mg cap ORAL SCH ×2 (08:52→18:00)
[2017-10-11] MEDS: Eliquis 2.5mg tablet ORAL SCH (08:53)
[2017-10-11] MEDS: Losartan 50mg tab ORAL SCH (08:53)
[2017-10-11] MEDS ORDERED: dilTIAZem HCl CD 240mg cap ORAL SCH (09:00)
[2017-10-11] MEDS ORDERED: Vitamin D 1000 IU Tab ORAL SCH (09:00)
--- NOTE | 2017-10-11 10:49 | Diagnostic Imaging Report ---
Indication: Shortness of breath Technique: One view of the chest Comparison: 10/08/2017 Findings: Lungs and pleural spaces are clear. Heart size is normal. Better inspiration on the current exam. Previously demonstrated upper lobe and generalized interstitial opacities are no longer evident. Left axillary surgical clips are noted. The aorta is tortuous Impression: No acute process
[2017-10-11 12:00] VITALS: BP 126/74
[2017-10-11] MEDS ORDERED: LEVAQUIN250 M1 ORAL (12:46)
[2017-10-11] MEDS ORDERED: COZAAR50 MG ORAL (12:46)
[2017-10-11] MEDS ORDERED: NORVASC10 MG ORAL (12:46)
[2017-10-11] MEDS ORDERED: ELIQUIS2.5 MG ORAL (12:46)
--- NOTE | 2017-10-11 14:13 | Cardiology Report ---
APPROVED REPORT EKG Measurement Heart [id number] Normal sinus rhythm Left axis deviation Voltage criteria for left ventricular hypertrophy Abnormal ECG
[2017-10-11 16:00] VITALS: BP 124/78
[2017-10-11] MEDS ORDERED: Carbamide Peroxide 6.5% Ot Sol 15ML ONE (18:54)
--- NOTE | 2017-10-12 01:15 | Discharge Summary ---
DATE OF ADMISSION: 10/08/2017 DATE OF DISCHARGE: 10/11/2017 HISTORY: The patient is an 82-year-old lady from the intermediate facility. See the note of Dr. Sumner, who saw her are on admission and knows her well. The patient is a poor historian, presented with increasing confusion and decline in her status. She is on multiple medications. PERTINENT PHYSICAL FINDINGS: HEENT: Normocephalic. LUNGS: Clear. HEART: Regular rhythm. ABDOMEN: Pendulous and soft. No organomegaly. EXTREMITIES: No edema. NEUROLOGIC: She is confused. No focal findings. COURSE IN THE HOSPITAL: The patient presented with increasing confusion and altered level of consciousness. Urinalysis showed 10 to 15 white cells so she was started on empiric antibiotics. Multiple medications from the ECF were stopped, which may cause altered mental status. The patient with the above treatment, became alert and responsive. Her vital signs were stable. She was treated for urinary tract infection. Her laboratories were monitored and she had a mild low albumin and normal TSH and normal electrolytes. At the time of discharge, her condition was stable. No further workup was needed and she was discharged back to the intermediate facility in stable condition. FINAL DIAGNOSES: 1. Altered mental status. 2. History of polypharmacy with likely sedation from multiple medications. 3. Urinary tract infection. 4. Hypertension with uncontrolled hypertension in the hospital, which came back to normal with resumption of medications. 5. Organic brain syndrome. 6. Chronic obstructive pulmonary disease. 7. Hypothyroidism, on replacement. 8. Fibromyalgia. 9. Morbid obesity. DISCHARGE DISPOSITION: She is discharged back to the ECF on a diet as tolerated. DISCHARGE MEDICATIONS: Per the discharge medication list. Chuy Tam M.D. DR: ESTEBAN JOB#: [id number] CC:
== END 2017-10-11 18:55 | DRG 948 ==
LOC: EDBD 20:02 → EDBEDREQ 20:29 → EMR 21:02 → 2E 21:23 → EDBEDREQ 22:43 → 2E 10-09 06:40 → 4W 10-10 15:24
DX: R41.82 Altered mental status, unspecified (principal); N39.0 Urinary tract infection, site not specified; G82.20 Paraplegia, unspecified; T50.905A Adverse effect of unspecified drugs, medicaments and biological substances, initial encounter; I10 Essential (primary) hypertension; F09 Unspecified mental disorder due to known physiological condition; J44.9 Chronic obstructive pulmonary disease, unspecified; E03.9 Hypothyroidism, unspecified; M79.7 Fibromyalgia; E66.01 Morbid (severe) obesity due to excess calories; Z88.1 Allergy status to other antibiotic agents; Z66 Do not resuscitate
CPT/HCPCS: 36415; 36600; 70450; 71045; 80048; 80053; 80307; 81003; 82140; 82550; 82803; 83605; 83735; 83880; 84443; 84484; 85025; 85610; 85651; 85730; 87040; 87070; 87081; 87086; 87181; 87205; 93005; 94664; 94760; 99285

== ENCOUNTER 2018-03-18 14:56 | Inpatient (IN) | payer MEDICARE, OTHER ==
[~2018-03-18] VITALS: Ht 170.2 cm; Wt 117.9 kg
[~2018-03-18 14:56] MED LIST changes: +ACETAMINOPHEN325 M1 ORAL; +BISACODYL10 MG/30 M RC; +COZAAR50 MG ORAL; +DEBROX15 M1 BOTH EARS; +ELIQUIS2.5 MG ORAL; +FLEET ENEMA133 ML RECTAL; +LEVAQUIN250 M1 ORAL; +MILK OF MA400 MG/51 ORAL; +NORVASC10 MG ORAL; +PREPARATION H1 EAC1 TP; +SENNA8.6 M2 PO
[2018-03-18 15:01] VITALS: BP 140/82
[2018-03-18] MEDS ORDERED: Sodium Chloride 500ML 500 ML IV ONE (15:33)
[2018-03-18 15:42] LABS: BASOPHILS % (AUTO) 0.6 % (0.0-2.0); EOSINOPHILS % (AUTO) 3.4 % (0.0-3.0); HEMATOCRIT 42.9 % (37.0-47.0); HEMOGLOBIN 13.7 G/DL (12.0-16.0); LYMPHOCYTES % (AUTO) 14.6 % (20.0-45.0); MEAN CORPUSCULAR VOLUME 91 FL (80-99); MONOCYTES % (AUTO) 7.6 % (1.0-10.0); NEUTROPHILS % (AUTO) 73.8 % (45.0-75.0); PLATELET COUNT 243 K/UL (150-450); RED BLOOD COUNT 4.73 M/UL (4.20-5.40); RED CELL DISTRIBUTION WIDTH 13.2 % (11.6-14.8); WHITE BLOOD COUNT 7.2 K/UL (4.8-10.8)
[2018-03-18] MEDS ORDERED: Isovue-300 100ml vial INJ PRN (15:45)
[2018-03-18 16:06] LABS: ANION GAP 9 mmol/L (5-15); BLOOD UREA NITROGEN 18 mg/dL (7-18); CALCIUM 9.8 MG/DL (8.5-10.1); CARBON DIOXIDE 31 MMOL/L (21-32); CHLORIDE 102 MMOL/L (98-107); POTASSIUM 4.4 MMOL/L (3.5-5.1); SODIUM 142 MMOL/L (136-145)
[2018-03-18 16:11] LABS: ALANINE AMINOTRANSFERASE 34 U/L (12-78); ALBUMIN 3.2 G/DL (3.4-5.0); ALBUMIN/GLOBULIN RATIO 0.7 (1.0-2.7); ALKALINE PHOSPHATASE 73 U/L (46-116); ASPARTATE AMINO TRANSFERASE 19 U/L (15-37); BILIRUBIN,TOTAL < 0.1 MG/DL (0.2-1.0)
[2018-03-18 16:35] LABS: APPEARANCE,URINE CLEAR; BILIRUBIN, URINE NEGATIVE (NEGATIVE); COLOR,URINE PALE YELLOW; GLUCOSE, URINE (UA) NEGATIVE (NEGATIVE); KETONES,URINE NEGATIVE (NEGATIVE); LEUKOCYTE ESTERASE ,URINE 3+ (NEGATIVE); NITRITE,URINE NEGATIVE (NEGATIVE); PH,URINE 7 (4.5-8.0); PROTEIN,URINE 1+ (NEGATIVE); UROBILINOGEN,URINE NORMAL MG/DL (0.0-1.0)
[2018-03-18 17:01] VITALS: BP 135/78
[2018-03-18] MEDS ORDERED: TYLENOL EXTRA500 MG ORAL (17:27)
[2018-03-18] MEDS ORDERED: ELIQUIS2.5 MG ORAL (17:31)
[2018-03-18] MEDS ORDERED: ELIQUIS2.5 MG PO (17:35)
[2018-03-18] MEDS ORDERED: ATORVASTATIN CA10 MG ORAL (17:36)
[2018-03-18] MEDS ORDERED: LOSARTAN POTAS100 MG ORAL (17:43)
--- NOTE | 2018-03-18 17:45 | Diagnostic Imaging Report ---
EXAM: CT Abdomen and Pelvis With Intravenous Contrast CLINICAL HISTORY: ABD PAIN TECHNIQUE: Axial computed tomography images of the abdomen and pelvis with intravenous contrast. CTDI is 0.15, 26.25 mGy and DLP is 1481 mGy-cm. One or more of the following dose reduction techniques were used: automated exposure control, adjustment of the mA and/or kV according to patient size, use of iterative reconstruction technique. COMPARISON: No relevant prior studies available. FINDINGS: Lung bases: Unremarkable. No mass. No consolidation. Heart: Trace pericardial effusion. Mediastinum: Small hiatal hernia. ABDOMEN: Liver: Indeterminate 2.1 cm focus of hypoattenuation in the posterior liver. Subcentimeter focus of hypoattenuation in the inferior liver is too small to characterize. Gallbladder and bile ducts: Unremarkable. No calcified stones. Pancreas: Unremarkable. Spleen: Unremarkable. Adrenals: Unremarkable. Kidneys and ureters: 8 mm partially exophytic lesion arising from the lower pole of the right kidney is indeterminate. Small fluid attenuating partially exophytic lesion arising from the superior pole of the right kidney likely represents a cyst. Subcentimeter focus of hypoattenuation in the right kidney is too small to characterize. No hydronephrosis. Stomach and bowel: Focal thickening of the distal descending colon with haziness of the surrounding fat is nonspecific and may be related to diverticulitis or focal colitis. Distended stool filled rectum is suggestive of constipation. PELVIS: Appendix: No findings to suggest acute appendicitis. Bladder: Unremarkable. Reproductive: Unremarkable as visualized. ABDOMEN and PELVIS: Intraperitoneal space: No free air or loculated fluid collection. Bones/joints: No acute osseous abnormality. Soft tissues: Diastases of the rectus musculature. Fat-containing bilateral inguinal hernias. Vasculature: Atherosclerosis and tortuosity of the abdominal aorta. No abdominal aortic aneurysm. Lymph nodes: Unremarkable. IMPRESSION: 1. Focal thickening of the distal descending colon with haziness of the surrounding fat is nonspecific and may be related to diverticulitis or focal colitis. No free air or loculated fluid collection. Interval follow-up may be considered after treatment to document resolution. 2. Indeterminate 8 mm right renal lesion. Nonemergent multiphase renal protocol CT or MRI may be considered for further characterization, if prior imaging is unavailable for comparison.
[2018-03-18] MEDS ORDERED: MELATONIN 3 MG1 EAC1 PO (17:48)
[2018-03-18] MEDS ORDERED: GABAPENTIN300 MG ORAL (17:53)
[2018-03-18] MEDS ORDERED: AMLODIPINE BESY10 MG ORAL (17:54)
[2018-03-18] MEDS ORDERED: VITAMIN D5000 UNI1 PO (18:00)
--- NOTE | 2018-03-18 18:30 | Emergency Room Report ---
History of Present Illness General Chief Complaint: Abdominal Pain Source: EMS Present Illness HPI 82-year-old female presents ED for evaluation. Coming from assisted facility. Having intermittent left upper quadrant pain for the last several weeks. Pain is sharp, 6 out of 10, nonradiating. Denies fevers or chills. Denies nausea or vomiting. Denies chest pain or shortness of breath. No other aggravating relieving factors. Denies any other associated symptoms Allergies: Coded Allergies: CEPHALEXIN (Verified Allergy, Unknown, 05/11/17) Patient History Past Medical History: DM, HTN Past Surgical History: none Pertinent Family History: none Social History: Denies: smoking, alcohol use, drug use Last Menstrual Period: Post menopausal Now: No Immunizations: UTD Reviewed Nursing Documentation: PMH: Agreed; PSxH: Agreed Nursing Documentation-PMH Past Medical History: No History, Except For Hx Hypertension: Yes - hypothyroidism, hyperlipidemia Hx COPD: Yes Hx Diabetes: Yes - Type 2 DM Hx Cancer: Yes - Breast Hx Cerebrovascular Accident: No - FIBROMYALGIA Review of Systems All Other Systems: negative except mentioned in HPI Physical Exam Vital Signs Date Time Temp Pulse Resp B/P (MAP) Pulse Ox O2 Delivery O2 Flow Rate FiO2 03/18/18 14:57 98.1 88 18 140/82 95 Nasal Cannula 2.0 Sp02 EP Interpretation: reviewed, normal General Appearance: no apparent distress, alert, GCS 15, non-toxic Head: normocephalic, atraumatic Eyes: bilateral eye normal inspection, bilateral eye PERRL ENT: hearing grossly normal, normal pharynx, no angioedema, normal voice Neck: full range of motion, supple/symm/no masses Respiratory: chest non-tender, lungs clear, normal breath sounds, speaking full sentences Cardiovascular #1: regular rate, rhythm, no edema Cardiovascular #2: 2+ carotid (R), 2+ carotid (L), 2+ radial (R), 2+ radial (L) , 2+ dorsalis pedis (R), 2+ dorsalis pedis (L) Gastrointestinal: normal bowel sounds, soft, non-distended, no guarding, no rebound, tenderness - LUQ Rectal: deferred Genitourinary: normal inspection, no CVA tenderness Musculoskeletal: back normal, gait/station normal, normal range of motion, non- tender Neurologic: alert, oriented x3, responsive, motor strength/tone normal, sensory intact, speech normal Psychiatric: judgement/insight normal, memory normal, mood/affect normal, no suicidal/homicidal ideation Reflexes: 3+ bicep (R), 3+ bicep (L), 3+ tricep (R), 3+ tricep (L), 3+ knee (R) , 3+ knee (L) Skin: normal color, no rash, warm/dry, well hydrated Lymphatic: no adenopathy Medical Decision Making Diagnostic Impression: Primary Impression: Pyelonephritis Additional Impression: Colitis ER Course Hospital Course 82-year-old female presents to ED with L sided abd pain Differential diagnoses include: appendicitis, diverticulitis, SBO, gastroenteritis Clinical course 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 After initial history and physical I ordered labs, IV fluids, UA, and CT scan Labs - no leukocytosis, Hb/Hct stable. electrolytes ok. UA + bacteria CT abdomen and pelvis - ? diverticulitis vs colitis. no abscess or free air Antibiotics given. Case discussed with Dr Sumner and he agreed to accept the patient to his service for further care and support I feel this is a highly complex case requiring extensive working including EKG/ Rhythm strip, Xray/CT/US, Blood/urine lab work, repeat exams while in ED, and administration of strong opiates/narcotics for pain control, admission to hospital or close patient follow up. Diagnosis - pyelonephritis, colitis Patient admitted to floor in serious condition Labs Test 03/18/18 15:23 03/18/18 16:10 White Blood Count 7.2 K/UL (4.8-10.8) Red Blood Count 4.73 M/UL (4.20-5.40) Hemoglobin 13.7 G/DL (12.0-16.0) Hematocrit 42.9 % (37.0-47.0) Mean Corpuscular Volume 91 FL (80-99) Mean Corpuscular Hemoglobin 29.0 PG (27.0-31.0) Mean Corpuscular Hemoglobin Concent 31.9 G/DL (32.0-36.0) Red Cell Distribution Width 13.2 % (11.6-14.8) Platelet Count 243 K/UL (150-450) Mean Platelet Volume 6.7 FL (6.5-10.1) Neutrophils (%) (Auto) 73.8 % (45.0-75.0) Lymphocytes (%) (Auto) 14.6 % (20.0-45.0) Monocytes (%) (Auto) 7.6 % (1.0-10.0) Eosinophils (%) (Auto) 3.4 % (0.0-3.0) Basophils (%) (Auto) 0.6 % (0.0-2.0) Sodium Level 142 MMOL/L (136-145) Potassium Level 4.4 MMOL/L (3.5-5.1) Chloride Level 102 MMOL/L (98-107) Carbon Dioxide Level 31 MMOL/L (21-32) Anion Gap 9 mmol/L (5-15) Blood Urea Nitrogen 18 mg/dL (7-18) Creatinine 1.0 MG/DL (0.55-1.30) Estimat Glomerular Filtration Rate mL/min (>60) Glucose Level 142 MG/DL (74-106) Calcium Level 9.8 MG/DL (8.5-10.1) Total Bilirubin < 0.1 MG/DL (0.2-1.0) Aspartate Amino Transf (AST/SGOT) 19 U/L (15-37) Alanine Aminotransferase (ALT/SGPT) 34 U/L (12-78) Alkaline Phosphatase 73 U/L (46-116) Total Protein 8.1 G/DL (6.4-8.2) Albumin 3.2 G/DL (3.4-5.0) Globulin 4.9 g/dL Albumin/Globulin Ratio 0.7 (1.0-2.7) Lipase 173 U/L (73-393) Urine Color Pale yellow Urine Appearance Clear Urine pH 7 (4.5-8.0) Urine Specific [place] 1.005 (1.005-1.035) Urine Protein 1+ (NEGATIVE) Urine Glucose (UA) Negative (NEGATIVE) Urine Ketones Negative (NEGATIVE) Urine Blood 3+ (NEGATIVE) Urine Nitrite Negative (NEGATIVE) Urine Bilirubin Negative (NEGATIVE) Urine Urobilinogen Normal MG/DL (0.0-1.0) Urine Leukocyte Esterase 3+ (NEGATIVE) Urine RBC 5-10 /HPF (0 - 2) Urine WBC 40-60 /HPF (0 - 2) Urine Squamous Epithelial Cells Few /LPF (NONE/OCC) Urine Bacteria Moderate /HPF (NONE) CT/MRI/US Diagnostic Results CT/MRI/US Diagnostic Results : Imaging Test Ordered: CT A/P Impression 1. Focal thickening of the distal descending colon with haziness of the surrounding fat is nonspecific and may be related to diverticulitis or focal colitis. No free air or loculated fluid collection. Interval follow-up may be considered after treatment to document resolution. Last Vital Signs Date Time Temp Pulse Resp B/P (MAP) Pulse Ox O2 Delivery O2 Flow Rate FiO2 03/18/18 17:01 97.9 85 16 135/78 97 Nasal Cannula 2.0 Status: improved Disposition: ADMITTED INPATIENT Condition: Serious Referrals: Tonya Ghosh MD (PCP) Black Chambers MD Mar 18, 2018 18:30
[2018-03-18 18:52] VITALS: BP 140/75
[2018-03-18 20:00] VITALS: BP 130/70
[2018-03-18] MEDS ORDERED: Fleet's Enema 133ml RECTAL PRN (20:45)
[2018-03-18] MEDS ORDERED: Milk of Magnesia 30ml Ud ORAL PRN (20:45)
[2018-03-18] MEDS ORDERED: Zolpidem 5mg tab ORAL PRN (20:45)
[2018-03-18] MEDS: Sennosides 8.6mg tab ORAL SCH (21:35)
[2018-03-18] MEDS: Eliquis 2.5mg tablet ORAL SCH (21:35)
[2018-03-19] VITALS: BP 136/67
[2018-03-19 04:00] VITALS: BP 130/69
[2018-03-19 06:09] LABS: BASOPHILS % (AUTO) 0.8 % (0.0-2.0); EOSINOPHILS % (AUTO) 4.1 % (0.0-3.0); HEMATOCRIT 37.6 % (37.0-47.0); HEMOGLOBIN 12.1 G/DL (12.0-16.0); LYMPHOCYTES % (AUTO) 18.6 % (20.0-45.0); MEAN CORPUSCULAR VOLUME 92 FL (80-99); NEUTROPHILS % (AUTO) 66.6 % (45.0-75.0); PLATELET COUNT 218 K/UL (150-450); RED BLOOD COUNT 4.07 M/UL (4.20-5.40); RED CELL DISTRIBUTION WIDTH 13.3 % (11.6-14.8); WHITE BLOOD COUNT 6.2 K/UL (4.8-10.8)
[2018-03-19] MEDS: Acetaminophen 500mg (ES) tab ORAL PRN ×2 (07:05→11:31)
[2018-03-19 07:08] LABS: ANION GAP 7 mmol/L (5-15); BLOOD UREA NITROGEN 18 mg/dL (7-18); CALCIUM 9.2 MG/DL (8.5-10.1); CARBON DIOXIDE 32 MMOL/L (21-32); CHLORIDE 102 MMOL/L (98-107); POTASSIUM 4.5 MMOL/L (3.5-5.1); SODIUM 141 MMOL/L (136-145)
[2018-03-19 08:00] VITALS: BP 150/70
[2018-03-19] MEDS: Eliquis 2.5mg tablet ORAL SCH ×2 (08:35→20:33)
[2018-03-19] MEDS: Losartan 50mg tab ORAL SCH (08:35)
[2018-03-19] MEDS: dilTIAZem HCl CD 240mg cap ORAL SCH (08:35)
[2018-03-19] MEDS: Docusate 100mg cap ORAL SCH ×2 (08:35→17:35)
--- NOTE | 2018-03-19 10:15 | History and Physical Report ---
DATE OF ADMISSION: 03/18/2018 CHIEF COMPLAINT: Left flank pain. HISTORY OF PRESENT ILLNESS: This is an 82-year-old female who I saw yesterday in her [place] [facility], [facility]. The patient is complaining bitterly of both left flank pain. PAST MEDICAL HISTORY: 1. Paraplegia "of unknown origin." 2. Chronic obstructive pulmonary disease. 3. Morbid obesity. 4. Diastolic heart failure. 5. Type 2 diabetes mellitus. 6. Hypothyroidism. 7. Hypertensive cardiovascular disease. 8. Gastroesophageal reflux disease. MEDICATIONS: Tylenol Extra Strength, amlodipine, Eliquis, Lipitor, vitamin D3, clonidine, diltiazem, sodium docusate, Neurontin, Synthroid, losartan, milk of magnesia, melatonin, Fleet Enema, senna. ALLERGIES: No known drug allergies. FAMILY HISTORY: The patient is confused. SOCIAL HISTORY: The patient is confused. REVIEW OF SYSTEMS: The patient is confused. PHYSICAL EXAMINATION: GENERAL: This is an elderly, morbidly obese female in no acute distress. VITAL SIGNS: Blood pressure 150/73, pulse 80 and regular, respirations 20, and temperature 98. HEENT: The head is normocephalic and atraumatic. Pupils equal, round, and reactive to light and accommodation consensually. NECK: Supple. Trachea midline. There was no lymphadenopathy or thyromegaly. LUNGS: Clear to auscultation and percussion. HEART: Regular rate and rhythm without rubs, murmurs, or gallops. ABDOMEN: Distended, soft, nontender. Bowel sounds were active. EXTREMITIES: No clubbing, cyanosis, or edema. NEUROLOGIC: The patient is alert, but confused. She has bilateral drop feet. LABORATORY AND ANCILLARY DATA: CBC within normal limits. Chemistry, glucose initially 142 and today 79. Urinalysis, 40-60 white blood cells. Urine culture and sensitivity pending. Imaging reports, CT scan of abdomen and pelvis shows focal thickening of the distal descending colon with haziness of the surrounding fat, nonspecific, may represent focal colitis; indeterminate 8-mm right renal lesion. ASSESSMENT: 1. UTI. 2. Rule out colitis. 3. Paraplegia "of unknown origin." 4. Chronic obstructive pulmonary disease. 5. Morbid obesity. 6. Diastolic heart failure. 7. Type 2 diabetes mellitus. 8. Hypothyroidism. 9. Hypertensive cardiovascular disease. 10. Gastroesophageal reflux disease. PLAN: 1. IV antibiotics after cultures. 2. Consider GI consult, although the patient does not have classical features of colitis. Tonya Ghosh M.D. DR: Juan JOB#: [id number] CC: BON
[2018-03-19 12:00] VITALS: BP 139/70
[2018-03-19 16:00] VITALS: BP 131/65
[2018-03-19 20:00] VITALS: BP 131/73
[2018-03-19] MEDS: Sennosides 8.6mg tab ORAL SCH (20:33)
[2018-03-20] VITALS: BP 140/73
[2018-03-20] MEDS: Acetaminophen 500mg (ES) tab ORAL PRN ×3 (03:57→22:45)
[2018-03-20 04:00] VITALS: BP 130/68
[2018-03-20 08:00] VITALS: BP 132/68
[2018-03-20] MEDS: dilTIAZem HCl CD 240mg cap ORAL SCH (08:38)
[2018-03-20] MEDS: Losartan 50mg tab ORAL SCH (08:38)
[2018-03-20] MEDS: Eliquis 2.5mg tablet ORAL SCH ×2 (08:38→20:22)
[2018-03-20] MEDS: Docusate 100mg cap ORAL SCH ×2 (08:38→17:33)
--- NOTE | 2018-03-20 10:10 | General Progress Note ---
Assessment/Plan Assessment/Plan UTI GNR - on IV Abx CT "colitis" no clinical features. Subjective Allergies: Coded Allergies: CEPHALEXIN (Verified Allergy, Unknown, 05/11/17) Subjective c/o abd pain Objective Last 24 Hour Vital Signs Date Time Temp Pulse Resp B/P (MAP) Pulse Ox O2 Delivery O2 Flow Rate FiO2 03/20/18 08:38 132/68 03/20/18 08:38 76 132/68 03/20/18 08:38 76 132/68 03/20/18 08:10 Nasal Cannula 2.0 03/20/18 08:00 96.6 76 20 132/68 (89) 94 03/20/18 04:00 97.0 65 17 130/68 (88) 94 03/20/18 00:00 97.2 65 18 140/73 (95) 94 03/19/18 21:00 Nasal Cannula 2.0 03/19/18 20:00 97.3 71 19 131/73 (92) 94 03/19/18 16:00 97.5 72 20 131/65 (87) 96 03/19/18 12:00 97.5 77 21 139/70 (93) 92 Intake and Output 03/19/18 03/20/18 18:59 06:59 Intake Total 500 ml 480 ml Balance 500 ml 480 ml Intake Oral 500 ml 480 ml # Voids 3 # Bowel Movements 2 Height (Feet): 5 Height (Inches): 7.00 Weight (Pounds): 260 Objective Morbidly obese. CV RR Lungs CTA Abd SNT. BS + E No CCE Tonya Ghosh MD Mar 20, 2018 10:10
[2018-03-20 12:00] VITALS: BP 122/59
[2018-03-20 15:37] VITALS: BP 122/58
[2018-03-20 20:00] VITALS: BP 121/57
[2018-03-20] MEDS: Sennosides 8.6mg tab ORAL SCH (20:22)
[2018-03-21] VITALS: BP 152/80
[2018-03-21] MEDS: Acetaminophen 500mg (ES) tab ORAL PRN (02:47)
[2018-03-21 04:00] VITALS: BP 154/63
[2018-03-21 08:00] VITALS: BP 143/65
--- NOTE | 2018-03-21 09:23 | General Progress Note ---
Assessment/Plan Assessment/Plan UTI GNR - on IV Abx. U C+s 3 strains <[address] "colitis" no clinical features. DC to [facility] Subjective Allergies: Coded Allergies: CEPHALEXIN (Verified Allergy, Unknown, 05/11/17) Subjective c/o abd pain Objective Last 24 Hour Vital Signs Date Time Temp Pulse Resp B/P (MAP) Pulse Ox O2 Delivery O2 Flow Rate FiO2 03/21/18 08:52 Room Air 03/21/18 08:00 97.5 72 17 143/65 (91) 95 03/21/18 04:00 97.5 61 20 154/63 (93) 95 03/21/18 00:00 97.4 66 20 152/80 (104) 03/20/18 21:00 Nasal Cannula 2.0 03/20/18 20:00 97.5 74 20 121/57 (78) 95 03/20/18 15:37 97.5 72 19 122/58 (79) 96 03/20/18 12:00 96.8 71 20 122/59 (80) 95 Intake and Output 03/20/18 03/21/18 18:59 06:59 Intake Total 1920 ml Output Total 3 ml Balance 1920 ml -3 ml Intake Oral 720 ml IV Total 1200 ml Output Urine Total 3 ml # Voids 3 # Bowel Movements 1 1 Height (Feet): 5 Height (Inches): 7.00 Weight (Pounds): 260 Objective Morbidly obese. CV RR Lungs CTA Abd SNT. BS + E No CCE Tonya Ghosh MD Mar 21, 2018 09:23
[2018-03-21] MEDS: Eliquis 2.5mg tablet ORAL SCH (09:26)
[2018-03-21] MEDS: Docusate 100mg cap ORAL SCH (09:27)
[2018-03-21] MEDS: dilTIAZem HCl CD 240mg cap ORAL SCH (09:31)
[2018-03-21] MEDS: Losartan 50mg tab ORAL SCH (09:35)
[2018-03-21 11:54] VITALS: BP 137/67
--- NOTE | 2018-03-23 11:49 | Discharge Summary ---
Discharge Summary Discharge Summary _ DATE OF ADMISSION: 03/18/2018 DATE OF DISCHARGE: 03/21/2018 REASON FOR ADMISSION: 82 years old female, resident of group home facility, with past medical history of COPD, morbid obesity, diastolic congestive heart failure, type 2 diabetes mellitus, hypertensive vascular disease, hypothyroidism, GERD, paraplegia of unknown origin, was sent for evaluation due to complaint of left flank pain. Laboratory workup revealed no leukocytosis, stable hemoglobin and hematocrit. Urinalysis revealed pyuria , +3 leukocyte esterase and moderate bacteria. CT of abdomen and pelvis showed focal thickening of the distal descending colon with haziness of the surrounding fat; nonspecific , possibly representing focal colitis . No free air or loculated fluid collection. Undetermined 8 mm right renal lesion. Patient admitted with diagnoses of UTI ,rule out colitis, paraplegia of unknown origin ,COPD, morbid obesity ,diastolic heart failure, type 2 diabetes mellitus , hypothyroidism, hypertensive cardiovascular disease, GERD. HOSPITAL COURSE: Patient admitted to medical surgical floor and started on broad spectrum IV antibiotics. Urine culture revealed Providencia with colony count 10-20K, Pseudomonas aeruginosa with colony count less than 10K and Enterococcus faecalis with colony count 10-20K. Patient had no clinical features of colitis. Patient completed 3 days of antibiotic for possible UTI . Blood pressure was managed with calcium channel lena and ARB. Statin was continued. on levothyroxine continue on. Blood sugar was closely monitored, remained stable. Bowel regimen instituted. Pain management was addressed as needed . Supportive care provided . Cardiovascular and respiratory status remained stable. Patient remains afebrile , no leukocytosis, no abdominal symptoms. Left flank pain resolved. Patient was stable for discharge back to group home facility for continuation of care FINAL DIAGNOSES: Possible urinary tract infection No clinical evidence of colitis COPD Diastolic heart failure Morbid obesity Type 2 diabetes mellitus Hypothyroidism Hypertensive cardiovascular disease GERD Paraplegia of unknown origin DISCHARGE MEDICATIONS: See Medication Reconciliation list. DISCHARGE INSTRUCTIONS: Patient was discharged to the group home facility. Follow up with medical doctor at the facility. I have been assigned to dictate discharge summary for this account. I was not involved in the patient's management. Kiersten Gastelum NP Mar 23, 2018 11:49
== END 2018-03-21 13:00 | DRG 690 ==
LOC: EDBD 14:56 → EDUNIT# 14:56 → EMR 16:00 → EDBEDREQ 17:15 → 4E 17:24 → EDBEDREQ 17:56
DX: N39.0 Urinary tract infection, site not specified (principal); G82.20 Paraplegia, unspecified; Z68.41 Body mass index [BMI] 40.0-44.9, adult; I50.32 Chronic diastolic (congestive) heart failure; J44.9 Chronic obstructive pulmonary disease, unspecified; E66.01 Morbid (severe) obesity due to excess calories; E11.9 Type 2 diabetes mellitus without complications; E03.9 Hypothyroidism, unspecified; K21.9 Gastro-esophageal reflux disease without esophagitis; I11.0 Hypertensive heart disease with heart failure; Z66 Do not resuscitate
CPT/HCPCS: 36415; 74177; 80048; 80053; 81003; 83690; 83735; 85025; 87081; 87086; 87181; 96365; 99285

== ENCOUNTER 2019-01-25 20:20 | Inpatient (IN) | payer MEDICARE, OTHER ==
[~2019-01-25] VITALS: Ht 170.2 cm; Wt 122.0 kg
[~2019-01-25 20:20] MED LIST changes: +AMLODIPINE BESY10 MG ORAL; +ATORVASTATIN CA10 MG ORAL; +ELIQUIS2.5 MG PO; +GABAPENTIN300 MG ORAL; +LOSARTAN POTAS100 MG ORAL; +MELATONIN 3 MG1 EAC1 PO; +VITAMIN D5000 UNI1 PO
[2019-01-25 20:50] VITALS: BP 165/85
--- NOTE | 2019-01-25 20:50 | NUR ---
ED Nurse Note: RECIEVED PT FROM [facility]ISON:KASSIE FELISA, HERE WITH C/O SOUGH AND CONGESTIOJ FOR 2 DAYS, PT IS AWAKE, ALERT AND ORIENTED X 4, PT PLACED ON CARDIAC MONITORING, DENIES CP, MILD SOB NOTED AT REST, PT DENIES CP OR ANY PAIN, IMMEDIATE EKG DONE AND IV LINE PALCED WITH LABS DRAWN, MD AT BEDSIDE, WILL RESUME CARE ORDERED.
[2019-01-25] MEDS ORDERED: GABAPENTIN300 MG ORAL (21:28)
[2019-01-25] MEDS ORDERED: POTASSIUM20 MEQ/100 IV (21:28)
[2019-01-25] MEDS ORDERED: FUROSEMIDE20 M1 ORAL (21:28)
[2019-01-25 21:34] LABS: BASOPHILS % (AUTO) 0.8 % (0.0-2.0); EOSINOPHILS % (AUTO) 3.7 % (0.0-3.0); HEMATOCRIT 41.8 % (37.0-47.0); HEMOGLOBIN 13.5 G/DL (12.0-16.0); LYMPHOCYTES % (AUTO) 17.2 % (20.0-45.0); MEAN CORPUSCULAR VOLUME 94 FL (80-99); MONOCYTES % (AUTO) 7.7 % (1.0-10.0); NEUTROPHILS % (AUTO) 70.6 % (45.0-75.0); PLATELET COUNT 224 K/UL (150-450); RED BLOOD COUNT 4.46 M/UL (4.20-5.40); RED CELL DISTRIBUTION WIDTH 12.1 % (11.6-14.8); WHITE BLOOD COUNT 6.7 K/UL (4.8-10.8)
--- NOTE | 2019-01-25 21:43 | Emergency Room Report ---
History of Present Illness General Chief Complaint: Upper Respiratory Illness Source: Patient Present Illness HPI Patient presents with complaints of cough congestion and shortness of breath ongoing for the past 7 days patient Resides at a nursing facility Denies any chest pain denies any vomiting she reports phlegm production with her cough Denies any recent travel patient is bedbound Denies any rash denies any change with position or exertion As her cough and congestion persisted patient presents to the ER Allergies: Coded Allergies: CEPHALEXIN (Verified Allergy, Unknown, 05/11/17) Patient History Past Medical History: see triage record Last Menstrual Period: n/a Reviewed Nursing Documentation: PMH: Agreed; PSxH: Agreed Nursing Documentation-PMH Past Medical History: No History, Except For Hx Hypertension: Yes - hypothyroidism, hyperlipidemia Hx COPD: Yes Hx Diabetes: Yes - Type 2 DM Hx Cancer: Yes - Breast Hx Cerebrovascular Accident: No - FIBROMYALGIA Review of Systems All Other Systems: negative except mentioned in HPI Physical Exam Vital Signs Date Time Temp Pulse Resp B/P (MAP) Pulse Ox O2 Delivery O2 Flow Rate FiO2 01/25/19 20:21 97.5 86 18 165/85 (111) 98 Room Air Sp02 EP Interpretation: reviewed, normal General Appearance: well appearing, no apparent distress Head: normocephalic, atraumatic Eyes: bilateral eye PERRL, bilateral eye EOMI ENT: hearing grossly normal, normal pharynx, TMs + canals normal, uvula midline Neck: full range of motion, supple, no meningismus, no bony tend Respiratory: no respiratory distress, no retraction, no accessory muscle use, crackles - bilaterally Cardiovascular #1: normal peripheral pulses, regular rate, rhythm, no edema, no gallop, no JVD, no murmur Gastrointestinal: normal bowel sounds, non tender, soft, no mass, no organomegaly, non-distended, no guarding, no hernia, no pulsatile mass, no rebound Genitourinary: no CVA tenderness Musculoskeletal: other - Patient is immobile, both lower extremities are in extension Neurologic: oriented x3, responsive, 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 III-XII nml as tested, motor strength/ tone normal, sensory intact Psychiatric: mood/affect normal Skin: no rash Lymphatic: normal inspection, no adenopathy Medical Decision Making Diagnostic Impression: Primary Impression: Dyspnea ER Course Patient is a fairly complex patient with multiple differential to consideration including but not limited to cardiac cardiopulmonary and vascular emergencies Patient's x-ray shows some congestion and crowding this is possibly due to position and body habitus patient did receive breathing treatment with significant improvement Blood work otherwise remaining baseline levels And patient stable for further inpatient care Labs Test 01/25/19 20:50 White Blood Count 6.7 K/UL (4.8-10.8) Red Blood Count 4.46 M/UL (4.20-5.40) Hemoglobin 13.5 G/DL (12.0-16.0) Hematocrit 41.8 % (37.0-47.0) Mean Corpuscular Volume 94 FL (80-99) Mean Corpuscular Hemoglobin 30.3 PG (27.0-31.0) Mean Corpuscular Hemoglobin Concent 32.3 G/DL (32.0-36.0) Red Cell Distribution Width 12.1 % (11.6-14.8) Platelet Count 224 K/UL (150-450) Mean Platelet Volume 5.3 FL (6.5-10.1) Neutrophils (%) (Auto) 70.6 % (45.0-75.0) Lymphocytes (%) (Auto) 17.2 % (20.0-45.0) Monocytes (%) (Auto) 7.7 % (1.0-10.0) Eosinophils (%) (Auto) 3.7 % (0.0-3.0) Basophils (%) (Auto) 0.8 % (0.0-2.0) Sodium Level 140 MMOL/L (136-145) Potassium Level 4.4 MMOL/L (3.5-5.1) Chloride Level 100 MMOL/L (98-107) Carbon Dioxide Level 32 MMOL/L (21-32) Anion Gap 8 mmol/L (5-15) Blood Urea Nitrogen 12 mg/dL (7-18) Creatinine 1.0 MG/DL (0.55-1.30) Estimat Glomerular Filtration Rate mL/min (>60) Glucose Level 116 MG/DL (74-106) Calcium Level 9.9 MG/DL (8.5-10.1) Total Bilirubin 0.3 MG/DL (0.2-1.0) Aspartate Amino Transf (AST/SGOT) 27 U/L (15-37) Alanine Aminotransferase (ALT/SGPT) 26 U/L (12-78) Alkaline Phosphatase 60 U/L (46-116) Troponin I 0.000 ng/mL (0.000-0.056) Pro-B-Type Natriuretic Peptide 93 pg/mL (0-125) Total Protein 7.6 G/DL (6.4-8.2) Albumin 3.3 G/DL (3.4-5.0) Globulin 4.3 g/dL Albumin/Globulin Ratio 0.8 (1.0-2.7) Rhythm Strip Diag. Results EP Interpretation: yes Rate: 77 Rhythm: NSR, no PVC's, no ectopy Chest X-Ray Diagnostic Results Chest X-Ray Diagnostic Results : Chest X-Ray Ordered: Yes # of Views/Limited/Complete: 1 View Indication: Shortness of Breath EP Interpretation: Yes Interpretation: no consolidation, no effusion, no pneumothorax, other - Mild congestion Impression: Other - Congestion, likely secondary to poor respiratory effort Electronically Signed by: Gabriela Fultno DO Last Vital Signs Date Time Temp Pulse Resp B/P (MAP) Pulse Ox O2 Delivery O2 Flow Rate FiO2 01/25/19 20:50 97.5 81 18 165/85 98 Room Air Status: improved Disposition: ADMITTED INPATIENT Condition: Serious Referrals: Tonya Ghosh MD (PCP) Gabriela Fulton DO Jan 25, 2019 21:42
[2019-01-25] MEDS ORDERED: Albuterol/Ipratropium 3ml neb HHN ONE (21:45)
[2019-01-25 21:53] LABS: ALANINE AMINOTRANSFERASE 26 U/L (12-78); ALBUMIN 3.3 G/DL (3.4-5.0); ALBUMIN/GLOBULIN RATIO 0.8 (1.0-2.7); ALKALINE PHOSPHATASE 60 U/L (46-116); ANION GAP 8 mmol/L (5-15); ASPARTATE AMINO TRANSFERASE 27 U/L (15-37); BILIRUBIN,TOTAL 0.3 MG/DL (0.2-1.0); BLOOD UREA NITROGEN 12 mg/dL (7-18); CALCIUM 9.9 MG/DL (8.5-10.1); CARBON DIOXIDE 32 MMOL/L (21-32); CHLORIDE 100 MMOL/L (98-107); POTASSIUM 4.4 MMOL/L (3.5-5.1); SODIUM 140 MMOL/L (136-145)
[2019-01-25 22:00] VITALS: BP 144/79
--- NOTE | 2019-01-25 22:05 | NUR ---
ED Nurse Note: PT HAS ROOM FOR HOSPITAL ADMISSION, REPORT CALLED TO FLOOR NURSE REGINORN, PT IN BED AWAKE AND ALERT, IV SITE PATENT, BELONGINGS WITH PT, PT BEING TAKEN TO UNIT VIA GURNEY WITH ER-TECH ON ACLS PROTOCOLS.
--- NOTE | 2019-01-25 22:45 | NUR ---
NURSE NOTES: Received pt from ED via gurney. Pt awake, A/Ox4, in no acute distress. No SOB at this time. placed pt on forensics team director, showing SR. VS stable. oriented pt to room and unit. IV line intact and patent. Bed in lowest position. Call light within reach. will contact MD for admission orders.
[2019-01-25 22:51] VITALS: BP 143/70
--- NOTE | 2019-01-25 23:30 | NUR ---
NURSE NOTES: Noted pt with run of SVT in the 140's for approximately 10 seconds. Assessed pt, no change in LOC, no c/o chest pain or SOB. VS stable. notified NHUNG Andres. No new orders at this time.
[2019-01-26] MEDS ORDERED: Flonase Nasal Inhaler 16gm NASAL PRN (00:15)
[2019-01-26] MEDS ORDERED: Milk of Magnesia 30ml Ud ORAL PRN (00:15)
--- NOTE | 2019-01-26 07:43 | NUR ---
HAND-OFF: Report given to BRANDIE Nash.
--- NOTE | 2019-01-26 07:44 | NUR ---
NURSE NOTES: Received patient in bed. In no apparent distress. Awake, alert, verbal, able to make needs known. Call light within reach. Denies any shortness of breath at this time. On 3L nasal cannula. Contact isolation observed. Will continue plan of care.
[2019-01-26 08:00] VITALS: BP 143/81
[2019-01-26] MEDS: Eliquis 2.5mg tablet ORAL SCH ×3 (09:51→21:40)
[2019-01-26] MEDS: Vitamin D 1000 IU Tab ORAL SCH (09:52)
[2019-01-26] MEDS: Losartan 50mg tab ORAL SCH (09:52)
[2019-01-26] MEDS: Docusate 100mg cap ORAL SCH ×2 (09:53→18:12)
[2019-01-26] MEDS: dilTIAZem HCl CD 240mg cap ORAL SCH (10:34)
--- NOTE | 2019-01-26 11:25 | Diagnostic Imaging Report ---
Indication: Cough Comparison: 10/11/2017 A single view chest radiograph was obtained. Findings: Mild pulmonary vascular congestion demonstrated. The heart is enlarged. Central vessels are slightly prominent. Bones are unremarkable. IMPRESSION: Mild pulmonary vascular congestion
[2019-01-26 12:00] VITALS: BP 132/60
--- NOTE | 2019-01-26 14:00 | NUR ---
NURSE NOTES: Patient's daughter at bedside. Patient remains in nasal cannula at 2L. In stable condition. No shortness of breath at this time.
--- NOTE | 2019-01-26 15:00 | NUR ---
NURSE NOTES: NHUNG Andres at bedside. Discussing plan of care with patient and patient's daughter.
--- NOTE | 2019-01-26 15:05 | History & Physical ---
History of Present Illness General Reason for Hospitalization: Upper Respiratory Illness Present Illness Allergies: Coded Allergies: CEPHALEXIN (Verified Allergy, Unknown, 05/11/17) Medication History Scheduled Amlodipine Besylate* (Amlodipine Besylate*), 10 MG ORAL DAILY, (Reported) Apixaban (Eliquis), 2.5 MG PO Q12HR, (Reported) Atorvastatin Calcium* (Lipitor*), 10 MG ORAL BEDTIME, (Reported) Cholecalciferol (Vitamin D3) (Vitamin D), 5,000 UNIT PO DAILY, (Reported) Diltiazem Hcl* (Cardizem Cd*), 240 MG ORAL DAILY, (Reported) Docusate Sodium* (Docusate Sodium*), 100 MG ORAL TWICE A DAY, (Reported) Furosemide* (Lasix*), 20 MG ORAL DAILY, (Reported) Gabapentin* (Gabapentin*), 300 MG ORAL THREE TIMES A DAY, (Reported) Gabapentin* (Gabapentin*), 300 MG ORAL THREE TIMES A DAY, (Reported) Levothyroxine Sodium* (Synthroid*), 100 MCG ORAL DAILY, (Reported) Losartan Potassium (Losartan Potassium), 100 MG ORAL DAILY, (Reported) Melatonin/Pyridoxine HCl (B6) (Melatonin 3 mg Tablet), 1 EACH PO QHS, (Reported) Potassium Chloride (Potassium Chloride), 20 MEQ IV DAILY, (Reported) Scheduled PRN Acetaminophen* (Tylenol Extra Strength*), 500 MG ORAL Q4HR PRN for Moderate Pain (Pain Scale 4-6), (Reported) Acetaminophen* (Acetaminophen 325MG Tablet*), 650 MG ORAL Q4H PRN for Fever/ Headache/Mild Pain, (Reported) Acetaminophen* (Tylenol Extra Strength*), 1,000 MG ORAL Q4HR PRN for Severe Pain (Pain Scale 7-10), (Reported) Magnesium Hydroxide* (Milk Of Magnesia*), 30 ML ORAL QHS PRN for Constipation, ( Reported) Sennosides (Senna), 2 TAB PO QHS PRN for Constipation, (Reported) Patient History Healthcare decision maker Resuscitation status Do Not Resuscitate Advanced Directive on File Review of Systems Review of Symptoms General ROS: no weight loss or fever Psychological ROS: no depression or mood changes, no memory loss Ophthalmic ROS: no visual changes or eye irritation ENT ROS: no nasal congestion, hearing loss, dizziness Allergy and Immunology ROS: no allergic symptoms or urticaria Hematological and Lymphatic ROS: no swollen glands, unusual bleeding or bruising Endocrine ROS: no polyuria, polydipsia, weight changes, temperature intolerance Respiratory ROS: Endorses cough, shortness of breath somewhat resolved by breathing treatments per pt, denies wheezing Cardiovascular ROS: no chest pain, endorses dyspnea on exertion Gastrointestinal ROS: denies abdominal pain, bright red blood in stool. Musculoskeletal ROS: no myalgias or arthralgias Neurological ROS: no TIA or stroke symptoms Dermatological ROS: no new or changing skin lesions, rashes or pruritis Physical Exam Physical Exam General appearance: alert, cooperative, no distress, appears stated age Head: Normocephalic, without obvious abnormality, atraumatic Eyes: conjunctivae/corneas clear. PERRL, EOM's intact. Fundi benign Throat: Lips, mucosa, and tongue normal. Teeth and gums normal Neck: supple, symmetrical, trachea midline, no adenopathy, thyroid: not enlarged, symmetric, no tenderness/mass/nodules, no carotid bruit and no JVD Lungs: fine bilateral rhonchi/productive cough Heart: regular rate and rhythm, S1, S2 normal, no murmur, click, rub or gallop Abdomen: soft, non-tender. Bowel sounds normal. No masses, no organomegaly Extremities: extremities normal, atraumatic, no cyanosis, 2+ pitting edema Pulses: 2+ and symmetric Skin: Skin color, texture, turgor normal. No rashes or lesions Neurologic: Grossly normal Last 24 Hour Vital Signs Date Time Temp Pulse Resp B/P (MAP) Pulse Ox O2 Delivery O2 Flow Rate FiO2 01/26/19 12:00 98.3 70 22 132/60 (84) 100 01/26/19 10:34 77 143/81 01/26/19 10:34 77 143/81 01/26/19 09:52 143/81 01/26/19 08:00 98.3 77 22 143/81 (101) 92 77 01/26/19 07:43 60 01/26/19 06:51 97 Nasal Cannula 2.0 28 01/26/19 04:00 65 01/26/19 01:45 98 Nasal Cannula 2.0 28 01/25/19 23:00 Nasal Cannula 3.0 01/25/19 22:51 98.6 76 20 143/70 (94) 94 01/25/19 22:51 76 01/25/19 22:30 98.4 76 20 144/79 97 Nasal Cannula 3.0 32 01/25/19 22:00 98.4 76 20 144/79 97 Nasal Cannula 3.0 32 01/25/19 21:52 69 20 97 Nasal Cannula 3.0 32 01/25/19 21:52 69 20 97 Nasal Cannula 3.0 32 69 20 97 01/25/19 20:50 97.5 81 18 165/85 98 Room Air 01/25/19 20:50 81 18 Room Air 01/25/19 20:21 97.5 86 18 165/85 (111) 98 Room Air Laboratory Tests Test 01/25/19 20:50 White Blood Count 6.7 K/UL (4.8-10.8) Red Blood Count 4.46 M/UL (4.20-5.40) Hemoglobin 13.5 G/DL (12.0-16.0) Hematocrit 41.8 % (37.0-47.0) Mean Corpuscular Volume 94 FL (80-99) Mean Corpuscular Hemoglobin 30.3 PG (27.0-31.0) Mean Corpuscular Hemoglobin Concent 32.3 G/DL (32.0-36.0) Red Cell Distribution Width 12.1 % (11.6-14.8) Platelet Count 224 K/UL (150-450) Mean Platelet Volume 5.3 FL (6.5-10.1) L Neutrophils (%) (Auto) 70.6 % (45.0-75.0) Lymphocytes (%) (Auto) 17.2 % (20.0-45.0) L Monocytes (%) (Auto) 7.7 % (1.0-10.0) Eosinophils (%) (Auto) 3.7 % (0.0-3.0) H Basophils (%) (Auto) 0.8 % (0.0-2.0) Sodium Level 140 MMOL/L (136-145) Potassium Level 4.4 MMOL/L (3.5-5.1) Chloride Level 100 MMOL/L (98-107) Carbon Dioxide Level 32 MMOL/L (21-32) Anion Gap 8 mmol/L (5-15) Blood Urea Nitrogen 12 mg/dL (7-18) Creatinine 1.0 MG/DL (0.55-1.30) Estimat Glomerular Filtration Rate mL/min (>60) Glucose Level 116 MG/DL (74-106) H Calcium Level 9.9 MG/DL (8.5-10.1) Total Bilirubin 0.3 MG/DL (0.2-1.0) Aspartate Amino Transf (AST/SGOT) 27 U/L (15-37) Alanine Aminotransferase (ALT/SGPT) 26 U/L (12-78) Alkaline Phosphatase 60 U/L (46-116) Troponin I 0.000 ng/mL (0.000-0.056) Pro-B-Type Natriuretic Peptide 93 pg/mL (0-125) Total Protein 7.6 G/DL (6.4-8.2) Albumin 3.3 G/DL (3.4-5.0) L Globulin 4.3 g/dL Albumin/Globulin Ratio 0.8 (1.0-2.7) L Microbiology Date/Time Source Procedure Growth Status 01/25/19 20:50 Nasal Nares - Final Complete 01/25/19 20:50 Nasal Nares - Final Complete 01/25/19 21:10 Rectum Received Height (Feet): 5 Height (Inches): 7.00 Weight (Pounds): 262 Medications Current Medications Medications (Trade) Dose Ordered Sig/Dannielle Route PRN Reason Start Time Stop Time Status Last Admin Dose Admin Acetaminophen (Tylenol) 650 mg Q4H PRN ORAL Mild Pain/Temp > 100.5 01/26/19 00:15 02/25/19 00:14 01/26/19 06:43 Amlodipine Besylate (Norvasc) 10 mg DAILY ORAL 01/26/19 11:00 02/25/19 10:59 01/26/19 10:34 Apixaban (Eliquis) 2.5 mg Q12HR ORAL 01/26/19 09:00 02/25/19 08:59 01/26/19 09:51 Atorvastatin Calcium (Lipitor) 10 mg BEDTIME ORAL 01/26/19 21:00 02/25/19 20:59 Diltiazem HCl (Cardizem CD) 240 mg DAILY ORAL 01/26/19 11:00 02/25/19 10:59 01/26/19 10:34 Docusate Sodium (Colace) 100 mg TWICE A DAY ORAL 01/26/19 09:00 02/25/19 08:59 01/26/19 09:53 Fluticasone Propionate (Flonase) 1 spray TWICE A DAY PRN NASAL To Patient Comfort 01/26/19 00:15 02/25/19 00:14 Furosemide (Lasix) 20 mg DAILY ORAL 01/26/19 09:00 02/25/19 08:59 01/26/19 09:53 Gabapentin (Neurontin) 300 mg THREE TIMES A DAY ORAL 01/26/19 09:00 02/25/19 08:59 01/26/19 13:41 Guaifenesin (Robitussin) 200 mg Q4H PRN ORAL For Cough 01/26/19 00:15 02/25/19 00:14 Levothyroxine Sodium (Synthroid) 100 mcg DAILY@0630 ORAL 01/26/19 06:30 02/25/19 06:29 01/26/19 06:37 Losartan Potassium (Cozaar) 100 mg DAILY ORAL 01/26/19 09:00 02/25/19 08:59 01/26/19 09:52 Magnesium Hydroxide (Mom) 30 ml QHS PRN ORAL Constipation 01/26/19 00:15 02/25/19 00:14 Potassium Chloride (K-Dur) 20 meq DAILY ORAL 01/26/19 09:00 02/25/19 08:59 01/26/19 09:53 Sennosides (Senokot) 8.6 mg QHS ORAL 01/26/19 21:00 02/25/19 20:59 Vitamin D (Vitamin D) 5,000 intlu DAILY ORAL 01/26/19 09:00 02/25/19 08:59 01/26/19 09:52 Assessment/Plan Status: stable Status Narrative This is an 83 y.o. female who is A&Ox4, NAD, pleasant and hemodynamically stable. She endorses 1 week ongoing and increasing cough and congestion unresolvedw/ Robitussin. She has a hx of htn, hld, CHF (on 20 mg daily furosemide), and hypothyroidism. She denies chest pain or light headedness. Endorses some relief with breathing treatments. Chest x-ray reveals pulmonary congestion. She has 2+ pitting edema to the lower extremities , however her BNP is 93. No leukocytosis noted. Most likely Viral URI. She was given a breathing tx duo neb and soon after had a 10 SVT in 140's per note. The medication was d/c'd. The patient reports having had some relief from the duo neb, thus Xopenex 1.25G HHN TIDrt ordered via hand held nebulizer. Continue 02 for comfort. Assessment/Plan: hypertension CHF hypothyroidism URI DM neuropathy hyperlipidemia CBC, BMP tomorrow Continue w/ breathing treatments TID, however replace Albuterol with Xopenex MIPS Hospital declaration INPATIENT level of care is warranted for this patient because patient is a 89 year old with who presents with suspicion of . I have a high level of concern because . Patient is at high risk for . Plan of care/treatment include . Patient care is expected to be greater than 2 midnights. OBSERVATION level of care is warranted for this patient. Patient is a 89 year old with who presents with . Patient will be admitted for 1 midnight, but if additional night(s) is/are necessary, patient will be converted to inpatient status for the entire hospitalization Disposition: Once the patient is stable to leave the hospital, I anticipate the patient will likely be discharged to the following environment: Estimated discharge date: I spent 70 minutes on this patient's case, and minutes was dedicated to counseling and/or care coordination. MIPS ([employer]it-based Incentive Payment System) Applicable CPT: 26560, 02164 CHECK ALL THAT ARE MET: Measure #5 (CHF): All ages. Prescribe EVELINA/ARB upon discharge for patients with left ventricular systolic dysfunction. If not, the reason is clearly documented in the medical chart. Measure #8 (CHF): All ages. Prescribe a beta lena upon discharge for patients with left ventricular systolic dysfunction. If not, the reason is clearly documented in the medical chart. Measure #47 Advance care plan or surrogate decision maker documented in the medical record. Measure #130 The provider has documented, updated, or reviewed the patients current medication list and has documented it in the patients note. Measure #374 (All): Send report to referring provider. Measure #407(Sepsis due to MSSA bacteremia): Age 18+ Patient treated with a beta-lactam antibiotic (Nafcillin, Oxacillin or Cefazolin) as definitive therapy. MEDICAL COMPLEXITY High complexity medical decision making (need 2/3 categories) Problem - need 4 points Acute/new problem with new plan for workup (4 points, 1 max) Acute/new problem without additional workup (3 points, 1 max) Unstable chronic problem actively being managed (2 point each, 2 max) Stable chronic problem actively being managed (1 point each, 2 max) Self-limited/transient process (constipation, muscle ache, etc) (1 point each , 2 max) Data - need 4 points Reviewed labs/imaging studies (1 points, 2 max) Independent review of imaging (EKG, xrays, etc) (2 points, 2 max) Discussed case with consult/other MD/RN (2 points, 2 max) High Risk - qualify if have one of the following: Severe exacerbation of acute problem, acute mental status change, IV narcotics , monitoring drug levels (vancomycin, INR, tacrolimus etc) Gisselle Andres N.P. Jan 26, 2019 15:05
[2019-01-26 16:00] VITALS: BP 121/72
--- NOTE | 2019-01-26 17:45 | Consultation ---
DATE OF CONSULTATION: 01/26/2019 PULMONARY CONSULTATION CONSULTING PHYSICIAN: Ángel Plasencia M.D. REFERRING PHYSICIAN: Tonya Ghosh M.D. REASON FOR CONSULTATION: Respiratory insufficiency, COPD. HISTORY OF PRESENT ILLNESS: The patient is an 83-year-old female, somewhat confused, presented with CHF and COPD. The patient noted to have cough, congestion, and shortness of breath in the past seven days. The [facility] and now being admitted for further care and management. The patient was not noted to have any type of aspiration. No recent travel. No ill contacts. She presented to the emergency room for further evaluation and further intervention. Imaging done in the emergency room showed pulmonary vascular congestion. The patient is admitted. She is on low-flow oxygen. As mentioned, she is a fairly poor historian, difficult to obtain at this time. PAST MEDICAL HISTORY: Notable for COPD, diabetes, breast cancer, fibromyalgia, congestive heart failure, hyperlipidemia, and hypothyroidism. MEDICATIONS: Reviewed. ALLERGIES: Reviewed. REVIEW OF SYSTEMS: Overall negative with the exception of the above. PHYSICAL EXAMINATION: GENERAL: The patient is a well-developed female, somewhat confused. VITAL SIGNS: Blood pressure 132/60, pulse 72, respirations 22, saturations 100%, and temperature 98.3. HEENT: Negative. The patient's extraocular movements are grossly intact. NECK: Supple. No adenopathy. LUNGS: With some basilar crackles, otherwise fairly clear. CARDIAC: S1 and S2. Regular rate and rhythm without clear murmurs, rubs, or gallops. ABDOMEN: Overall soft, nontender, and nondistended. EXTREMITIES: No cyanosis or clubbing. No significant changes noted. Mild edema. NEUROLOGIC: Grossly nonfocal, but confused. LABORATORY DATA: Otherwise reviewed. CBC, fairly negative. Chemistries, negative. Albumin is 3.3. X-rays as mentioned. IMPRESSION: 1. Congestive heart failure with acute exacerbation. 2. Chronic obstructive pulmonary disease, which appears to be fairly stable. 3. Mild shortness of breath. 4. Hypothyroidism. 5. History of breast cancer. 6. History of diabetes. RECOMMENDATIONS: Supportive medication, nebulized therapy, oxygen therapy, and diuretics. Monitor x-ray and monitor exam and assess clinically for further changes. At present, no clear need for IV steroids and we will follow up clinically for further changes and interventions. Ángel Plasencia M.D. DR: KERMIT JOB#: [id number] CC:
[2019-01-26] MEDS: Levalbuterol Inh UD 1.25mg/0.5ml HHN SCH (19:24)
--- NOTE | 2019-01-26 19:30 | NUR ---
HAND-OFF: Report given to Elva Smith RN.
--- NOTE | 2019-01-26 19:57 | NUR ---
NURSE NOTES: Received pt from BRANDIE Nash. Pt awake, alert, and talkative. Bed in lowest position. Call light within reach. Will continue to monitor.
[2019-01-26 20:00] VITALS: BP 147/64
--- NOTE | 2019-01-26 20:11 | NUR ---
CASE MANAGEMENT: REVIEW 83Y/FEMALE BIBA FROM [facility] CC: COUGH . CONGESTION . SOB Hx: CHF . DM . BREAST CA SI: COPD . CHF EXACERBATION T 97.5 HR 81 RR 18 BP 165/85 SAT 97% NC/3L GLUCOSE 116 IS: ALBUTEROL HHN X1 PATIENT ADMITTED TO TELEMETRY UNIT 01/25/2019 DCP: PATIENT IS FROM [facility]
[2019-01-26] MEDS: Sennosides 8.6mg tab ORAL SCH (20:25)
--- NOTE | 2019-01-26 20:39 | NUR ---
NURSE NOTES: Pt requested for meds to be given later in the night. Will continue to monitor.
--- NOTE | 2019-01-26 23:33 | NUR ---
HAND-OFF: Report given to BRANDIE Abbasi. Pt stable.
--- NOTE | 2019-01-26 23:35 | NUR ---
NURSE NOTES: Received pt from Elva Galeana RN. Pt asleep in bed, Bed in lowest position, locked, side rails x2, bed alarm on. Call light within reach. Will continue to monitor.
[2019-01-27] VITALS: BP 149/66
[2019-01-27 04:00] VITALS: BP 155/60
[2019-01-27] MEDS: Levalbuterol Inh UD 1.25mg/0.5ml HHN SCH ×3 (07:24→19:48)
--- NOTE | 2019-01-27 07:28 | NUR ---
NURSE NOTES: Received report from Nisa DIEGO. Pt AOX4 and able to make needs known. Pt sitting in bed and eating breakfast. No c/o pain. IV site in Right hand 22G SL patient and asymptomatic. No SOB or acute distress noted. Will continue to plan of care.
--- NOTE | 2019-01-27 07:28 | NUR ---
HAND-OFF: Report given to Isa Booth RN.
--- NOTE | 2019-01-27 07:30 | CDS Physician Query ---
Clarification is required for compliance, coding accuracy, and to reflect severity of illness for this patient Dear Dr. Ángel Plasencia M.D. Date: 01/27/2019 Academic Administrator/CDS Name: Efrem Bran "Congestive heart failure with acute exacerbation" documented in consultation notes Please Clarify: Acuity [] Acute [] Chronic [x] Acute on Chronic Type [x] Systolic [] Diastolic [] Systolic & Diastolic (Combined) [] Other: Present on Admission: [] Yes [] No [] Clinically Undetermined Physician signature Date Please also document in your Progress Notes and/or Discharge Summary and indicate if the condition was present on admission. PRISCILLAD
[2019-01-27 07:55] LABS: BASOPHILS % (AUTO) 1.1 % (0.0-2.0); EOSINOPHILS % (AUTO) 4.3 % (0.0-3.0); HEMATOCRIT 36.7 % (37.0-47.0); HEMOGLOBIN 11.9 G/DL (12.0-16.0); LYMPHOCYTES % (AUTO) 20.2 % (20.0-45.0); MEAN CORPUSCULAR VOLUME 94 FL (80-99); MONOCYTES % (AUTO) 6.8 % (1.0-10.0); NEUTROPHILS % (AUTO) 67.5 % (45.0-75.0); PLATELET COUNT 209 K/UL (150-450); RED CELL DISTRIBUTION WIDTH 12.8 % (11.6-14.8); WHITE BLOOD COUNT 6.4 K/UL (4.8-10.8)
[2019-01-27 08:00] VITALS: BP 139/68
[2019-01-27 08:21] LABS: ANION GAP 6 mmol/L (5-15); BLOOD UREA NITROGEN 10 mg/dL (7-18); CALCIUM 9.1 MG/DL (8.5-10.1); CARBON DIOXIDE 32 MMOL/L (21-32); CHLORIDE 103 MMOL/L (98-107); CREATININE 0.8 MG/DL (0.55-1.30); POTASSIUM 5.6 MMOL/L (3.5-5.1); SODIUM 141 MMOL/L (136-145)
[2019-01-27] MEDS: Vitamin D 1000 IU Tab ORAL SCH (08:26)
[2019-01-27] MEDS: Losartan 50mg tab ORAL SCH (08:27)
[2019-01-27] MEDS: dilTIAZem HCl CD 240mg cap ORAL SCH (08:28)
[2019-01-27] MEDS: Eliquis 2.5mg tablet ORAL SCH ×2 (08:29→20:37)
[2019-01-27] MEDS: Docusate 100mg cap ORAL SCH ×2 (08:29→17:40)
--- NOTE | 2019-01-27 11:38 | Nephrology Progress Note ---
Assessment/Plan Assessment URI (cough & congestion & afebrile, denies myalgias/malaise/chills/diaphoresis/N /V/C/D) Hx: DM, breast cancer, COPD, fibromyalgia, CHF, hyperlipidemia, hypothyroidism Plan CBC, BMP in am Continue medication as ordered. 2L 02 (baseline hx of COPD) Consider d/c tomorrow if remains stable. Subjective Constitutional: Reports: no symptoms HEENT: Reports: no symptoms Neurologic/Psychiatric: Reports: no symptoms Subjective Ms. Mariscal denies any new symptoms, concerns or questions at this time. She reports feeling well. Objective Objective Last 24 Hour Vital Signs Date Time Temp Pulse Resp B/P (MAP) Pulse Ox O2 Delivery O2 Flow Rate FiO2 01/27/19 09:00 Nasal Cannula 2.0 01/27/19 08:28 84 139/68 01/27/19 08:28 84 139/68 01/27/19 08:27 139/68 01/27/19 08:00 98.2 84 21 139/68 (91) 96 01/27/19 07:24 94 Nasal Cannula 2.0 28 01/27/19 07:24 77 20 95 Nasal Cannula 2.0 28 75 18 94 01/27/19 04:00 67 01/27/19 04:00 98.9 75 18 155/60 (91) 96 01/27/19 00:00 61 01/27/19 00:00 98.4 86 19 149/66 (93) 95 01/26/19 21:00 Nasal Cannula 2.0 01/26/19 20:00 98.2 84 19 147/64 (91) 94 01/26/19 20:00 67 01/26/19 19:33 75 20 96 Nasal Cannula 3.0 32 72 20 93 01/26/19 19:33 93 Nasal Cannula 2.0 28 01/26/19 16:00 98.3 66 22 121/72 (88) 95 01/26/19 15:39 71 01/26/19 12:00 98.3 70 22 132/60 (84) 100 Laboratory Tests 01/27/19 06:35: White Blood Count 6.4, Red Blood Count 3.90L, Hemoglobin 11.9L, Hematocrit 36.7L , Mean Corpuscular Volume 94, Mean Corpuscular Hemoglobin 30.5, Mean Corpuscular Hemoglobin Concent 32.5, Red Cell Distribution Width 12.8, Platelet Count 209, Mean Platelet Volume 5.1L, Neutrophils (%) (Auto) 67.5, Lymphocytes ( %) (Auto) 20.2, Monocytes (%) (Auto) 6.8, Eosinophils (%) (Auto) 4.3H, Basophils (%) (Auto) 1.1, Sodium Level 141, Potassium Level 5.6H, Chloride Level 103, Carbon Dioxide Level 32, Anion Gap 6, Blood Urea Nitrogen 10, Creatinine 0.8, Estimat Glomerular Filtration Rate , Glucose Level 92, Calcium Level 9.1 01/27/19 08:53: Potassium Level 4.0 Height (Feet): 5 Height (Inches): 7.00 Weight (Pounds): 262 General Appearance: WD/WN, no apparent distress, alert, alert oriented x3 EENT: PERRL/EOMI, normal ENT inspection, TMs normal Neck: non-tender, normal alignment, supple, normal inspection Cardiovascular: normal peripheral pulses, normal rate, regular rhythm Respiratory/Chest: normal breath sounds, no respiratory distress, no accessory muscle use, crackles/rales Abdomen: non tender, soft, no organomegaly, no mass Extremities: moderate edema Neurologic: alert, oriented x 3 Gisselle Andres N.P. Jan 27, 2019 11:38
[2019-01-27 12:00] VITALS: BP 126/89
[2019-01-27 16:00] VITALS: BP 131/73
--- NOTE | 2019-01-27 17:08 | Pulmonology Progress Note ---
Assessment/Plan Assessment/Plan Pulmonary Consultation: HPI: The patient is an 83-year-old female, somewhat confused, presented with CHF and COPD. The patient noted to have cough, congestion, and shortness of breath in the past seven days. The patient resides in a [place] [facility] facility and now being admitted for further care and management. The patient was not noted to have any type of aspiration. No recent travel. No ill contacts. She presented to the emergency room for further evaluation and further intervention. Imaging done in the emergency room showed pulmonary vascular congestion. The patient is admitted. She is on low-flow oxygen. As mentioned, she is a fairly poor historian, difficult to obtain at this time. PAST MEDICAL HISTORY: Notable for COPD, diabetes, breast cancer, fibromyalgia, congestive heart failure, hyperlipidemia, and hypothyroidism. MEDICATIONS: Reviewed. ALLERGIES: Reviewed. REVIEW OF SYSTEMS: Overall negative with the exception of the above. PHYSICAL EXAMINATION: GENERAL: The patient is a well-developed female, somewhat confused. VITAL SIGNS NOTED HEENT: Negative. The patient's extraocular movements are grossly intact. NECK: Supple. No adenopathy. LUNGS: With some basilar crackles, otherwise fairly clear. CARDIAC: S1 and S2. Regular rate and rhythm without clear murmurs, rubs, or gallops. ABDOMEN: Overall soft, nontender, and nondistended. EXTREMITIES: No cyanosis or clubbing. No significant changes noted. Mild edema. NEUROLOGIC: Grossly nonfocal, but confused. LABORATORY DATA: Noted. X-rays as mentioned. IMPRESSION: 1. Congestive heart failure with acute exacerbation. 2. Chronic obstructive pulmonary disease 3. Mild shortness of breath. 4. Hypothyroidism. 5. History of breast cancer. 6. History of diabetes. RECOMMENDATIONS: Supportive medication, nebulized therapy, oxygen therapy, and diuretics. Monitor x-ray and monitor exam and assess clinically for further changes. At present, no clear need for IV steroids and we will follow up clinically for further changes and interventions. Subjective ROS Limited/Unobtainable: No Allergies: Coded Allergies: CEPHALEXIN (Verified Allergy, Unknown, 05/11/17) Objective Last 24 Hour Vital Signs Date Time Temp Pulse Resp B/P (MAP) Pulse Ox O2 Delivery O2 Flow Rate FiO2 01/27/19 16:00 78 01/27/19 16:00 98.0 72 22 131/73 (92) 96 01/27/19 12:59 73 20 95 Nasal Cannula 2.0 28 78 18 95 01/27/19 12:00 69 01/27/19 12:00 97.8 96 22 126/89 (101) 97 01/27/19 09:00 Nasal Cannula 2.0 01/27/19 08:28 84 139/68 01/27/19 08:28 84 139/68 01/27/19 08:27 139/68 01/27/19 08:00 98.2 84 21 139/68 (91) 96 01/27/19 08:00 70 01/27/19 07:24 94 Nasal Cannula 2.0 28 01/27/19 07:24 77 20 95 Nasal Cannula 2.0 28 75 18 94 01/27/19 04:00 67 01/27/19 04:00 98.9 75 18 155/60 (91) 96 01/27/19 00:00 61 01/27/19 00:00 98.4 86 19 149/66 (93) 95 01/26/19 21:00 Nasal Cannula 2.0 01/26/19 20:00 98.2 84 19 147/64 (91) 94 01/26/19 20:00 67 01/26/19 19:33 75 20 96 Nasal Cannula 3.0 32 72 20 93 01/26/19 19:33 93 Nasal Cannula 2.0 28 Microbiology Date/Time Source Procedure Growth Status 01/25/19 20:50 Nasal Nares - Final Complete 01/25/19 20:50 Nasal Nares - Final Complete 01/25/19 21:10 Rectum Received Laboratory Tests 01/27/19 06:35: White Blood Count 6.4, Red Blood Count 3.90L, Hemoglobin 11.9L, Hematocrit 36.7L , Mean Corpuscular Volume 94, Mean Corpuscular Hemoglobin 30.5, Mean Corpuscular Hemoglobin Concent 32.5, Red Cell Distribution Width 12.8, Platelet Count 209, Mean Platelet Volume 5.1L, Neutrophils (%) (Auto) 67.5, Lymphocytes ( %) (Auto) 20.2, Monocytes (%) (Auto) 6.8, Eosinophils (%) (Auto) 4.3H, Basophils (%) (Auto) 1.1, Sodium Level 141, Potassium Level 5.6H, Chloride Level 103, Carbon Dioxide Level 32, Anion Gap 6, Blood Urea Nitrogen 10, Creatinine 0.8, Estimat Glomerular Filtration Rate , Glucose Level 92, Calcium Level 9.1 01/27/19 08:53: Potassium Level 4.0 Current Medications Medications (Trade) Dose Ordered Sig/Dannielle Route PRN Reason Start Time Stop Time Status Last Admin Dose Admin Acetaminophen (Tylenol) 650 mg Q4H PRN ORAL Mild Pain/Temp > 100.5 01/26/19 00:15 02/25/19 00:14 01/27/19 06:10 Amlodipine Besylate (Norvasc) 10 mg DAILY ORAL 01/26/19 11:00 02/25/19 10:59 01/27/19 08:28 Apixaban (Eliquis) 2.5 mg Q12HR ORAL 01/26/19 09:00 02/25/19 08:59 01/27/19 08:29 Atorvastatin Calcium (Lipitor) 10 mg BEDTIME ORAL 01/26/19 21:00 02/25/19 20:59 01/26/19 21:40 Diltiazem HCl (Cardizem CD) 240 mg DAILY ORAL 01/26/19 11:00 02/25/19 10:59 01/27/19 08:28 Docusate Sodium (Colace) 100 mg TWICE A DAY ORAL 01/26/19 09:00 02/25/19 08:59 01/27/19 08:29 Fluticasone Propionate (Flonase) 1 spray TWICE A DAY PRN NASAL To Patient Comfort 01/26/19 00:15 02/25/19 00:14 Furosemide (Lasix) 20 mg DAILY ORAL 01/26/19 09:00 02/25/19 08:59 01/27/19 08:28 Gabapentin (Neurontin) 300 mg THREE TIMES A DAY ORAL 01/26/19 09:00 02/25/19 08:59 01/27/19 13:23 Guaifenesin (Robitussin) 200 mg Q4H PRN ORAL For Cough 01/26/19 00:15 02/25/19 00:14 Levalbuterol HCl (Xopenex) 1.25 mg TIDRT HHN 01/26/19 19:00 01/31/19 18:59 01/27/19 12:59 Levothyroxine Sodium (Synthroid) 100 mcg DAILY@0630 ORAL 01/26/19 06:30 02/25/19 06:29 01/27/19 05:50 Losartan Potassium (Cozaar) 100 mg DAILY ORAL 01/26/19 09:00 02/25/19 08:59 01/27/19 08:27 Magnesium Hydroxide (Mom) 30 ml QHS PRN ORAL Constipation 01/26/19 00:15 02/25/19 00:14 Potassium Chloride (K-Dur) 20 meq DAILY ORAL 01/26/19 09:00 02/25/19 08:59 01/27/19 09:58 Sennosides (Senokot) 8.6 mg QHS ORAL 01/26/19 21:00 02/25/19 20:59 Vitamin D (Vitamin D) 5,000 intlu DAILY ORAL 01/26/19 09:00 02/25/19 08:59 01/27/19 08:26 Antonio Garcia MD Jan 27, 2019 17:08
--- NOTE | 2019-01-27 19:17 | NUR ---
HAND-OFF: Report given to Jones RN. Pt remains stable.
[2019-01-27 20:00] VITALS: BP 134/79
[2019-01-27] MEDS: Sennosides 8.6mg tab ORAL SCH (20:37)
[2019-01-28] VITALS: BP 156/64
[2019-01-28 04:00] VITALS: BP 133/66
--- NOTE | 2019-01-28 04:01 | NUR ---
NURSE NOTES: Patient in bed asleep with no S/S of distress. Will continue to monitor
[2019-01-28] MEDS: Levalbuterol Inh UD 1.25mg/0.5ml HHN SCH ×4 (07:00→19:30)
--- NOTE | 2019-01-28 07:18 | NUR ---
NURSE NOTES: Received report from Jones DIEGO. Alert and oriented. Pt in bed. Side rails x2 up for safety. No c/o pain. No acute distress noted. IV site in right hand 22G SL patent and asymptomatic. Will continue to plan of care.
--- NOTE | 2019-01-28 07:18 | NUR ---
HAND-OFF: Report given to Nelson Booth RN. Patient in bed comfortable with no S/S of distress. Endorsed plan of care.
[2019-01-28 08:00] VITALS: BP 153/59
[2019-01-28] MEDS: Vitamin D 1000 IU Tab ORAL SCH (08:43)
[2019-01-28] MEDS: dilTIAZem HCl CD 240mg cap ORAL SCH (08:44)
[2019-01-28] MEDS: Eliquis 2.5mg tablet ORAL SCH ×2 (08:44→20:22)
[2019-01-28] MEDS: Losartan 50mg tab ORAL SCH (08:45)
[2019-01-28] MEDS: Docusate 100mg cap ORAL SCH ×2 (08:45→17:22)
[2019-01-28] MEDS: guaiFENesin 100mg/5ml Liq ud ORAL PRN (09:30)
--- NOTE | 2019-01-28 10:54 | Nephrology Progress Note ---
Assessment/Plan Assessment URI (cough & congestion & afebrile, denies myalgias/malaise/chills/diaphoresis/N /V/C/D) Hx: DM, breast cancer, COPD, fibromyalgia, CHF, hyperlipidemia, hypothyroidism Plan CBC, BMP in am Increasing TID breathing tx to QID Repeat BNP (2+ bilateral lower pitting edema) 2L 02 (baseline hx of COPD) May consider Prednisone tomorrow, if QID tx not effective and if BNP WNL. Subjective Subjective No new symptoms, concerns or questions at this time. Objective Objective Last 24 Hour Vital Signs Date Time Temp Pulse Resp B/P (MAP) Pulse Ox O2 Delivery O2 Flow Rate FiO2 01/28/19 09:00 Nasal Cannula 2.0 01/28/19 08:45 153/59 01/28/19 08:44 80 153/59 01/28/19 08:44 80 153/59 01/28/19 08:00 103 01/28/19 08:00 97.8 80 18 153/59 (90) 93 01/28/19 07:10 76 19 98 Nasal Cannula 2.0 75 19 93 01/28/19 07:00 93 Nasal Cannula 2.0 28 01/28/19 04:00 96 01/28/19 04:00 98.4 66 22 133/66 (88) 95 01/28/19 00:00 98.0 78 19 156/64 (94) 95 01/28/19 00:00 64 01/27/19 21:00 Nasal Cannula 2.0 01/27/19 20:00 98.5 78 18 134/79 (97) 95 01/27/19 20:00 68 01/27/19 19:52 78 18 98 Nasal Cannula 2.0 28 75 18 95 01/27/19 19:48 94 Nasal Cannula 2.0 28 01/27/19 16:00 78 01/27/19 16:00 98.0 72 22 131/73 (92) 96 01/27/19 12:59 73 20 95 Nasal Cannula 2.0 28 78 18 95 01/27/19 12:00 69 01/27/19 12:00 97.8 96 22 126/89 (101) 97 Intake and Output 01/27/19 01/28/19 19:00 07:00 Output Total 900 ml 1200 ml Balance -900 ml -1200 ml Output Urine Total 900 ml 1200 ml # Bowel Movements 3 1 Height (Feet): 5 Height (Inches): 7.00 Weight (Pounds): 266 General Appearance: WD/WN, no apparent distress, alert EENT: PERRL/EOMI, normal ENT inspection Neck: non-tender, normal alignment, supple Cardiovascular: normal peripheral pulses, normal rate, regular rhythm Respiratory/Chest: inspiratory wheezing Abdomen: normal bowel sounds, non tender, soft, no organomegaly Extremities: non-tender, moderate edema Neurologic: alert, oriented x 3 Objective 2+ ongoing pitting edema/BNP wnl/will repeat today inspiratory wheezing despite oral medication and breathing tx afebrile/no leukocytosis Gisselle Andres N.P. Jan 28, 2019 10:54
[2019-01-28 11:10] LABS: BASOPHILS % (AUTO) 0.3 % (0.0-2.0); EOSINOPHILS % (AUTO) 2.7 % (0.0-3.0); HEMATOCRIT 39.4 % (37.0-47.0); HEMOGLOBIN 12.6 G/DL (12.0-16.0); LYMPHOCYTES % (AUTO) 11.5 % (20.0-45.0); MEAN CORPUSCULAR VOLUME 95 FL (80-99); MONOCYTES % (AUTO) 5.8 % (1.0-10.0); NEUTROPHILS % (AUTO) 79.8 % (45.0-75.0); PLATELET COUNT 235 K/UL (150-450); RED BLOOD COUNT 4.17 M/UL (4.20-5.40); RED CELL DISTRIBUTION WIDTH 13.1 % (11.6-14.8); WHITE BLOOD COUNT 7.4 K/UL (4.8-10.8)
[2019-01-28 11:12] LABS: ANION GAP 5 mmol/L (5-15); BLOOD UREA NITROGEN 12 mg/dL (7-18); CALCIUM 8.8 MG/DL (8.5-10.1); CARBON DIOXIDE 33 MMOL/L (21-32); CHLORIDE 101 MMOL/L (98-107); CREATININE 0.9 MG/DL (0.55-1.30); POTASSIUM 4.1 MMOL/L (3.5-5.1); SODIUM 139 MMOL/L (136-145)
[2019-01-28 12:00] VITALS: BP 124/52
--- NOTE | 2019-01-28 14:26 | Pulmonology Progress Note ---
Assessment/Plan Assessment/Plan Pulmonary Progress Note: HPI: The patient is an 83-year-old female, admitted with CHF and COPD. The patient noted to have cough, congestion, and shortness of breath for 1 week. She resides in a shelter facility and now being admitted for further care and management. The patient was not noted to have any type of aspiration. No recent travel. No ill contacts. She presented to the emergency room for further evaluation and further intervention. Imaging done in the emergency room showed pulmonary vascular congestion. The patient is admitted. She is on low-flow oxygen. As mentioned, she is a fairly poor historian, difficult to obtain at this time. PAST MEDICAL HISTORY: Notable for COPD, diabetes, breast cancer, fibromyalgia, congestive heart failure, hyperlipidemia, and hypothyroidism. MEDICATIONS: Reviewed. ALLERGIES: Reviewed. REVIEW OF SYSTEMS: Overall negative with the exception of the above. PHYSICAL EXAMINATION: GENERAL: The patient is a well-developed female, somewhat confused. VITAL SIGNS NOTED HEENT: Negative. The patient's extraocular movements are grossly intact. NECK: Supple. No adenopathy. LUNGS: With some basilar crackles, otherwise fairly clear. CARDIAC: S1 and S2. Regular rate and rhythm without clear murmurs, rubs, or gallops. ABDOMEN: Overall soft, nontender, and nondistended. EXTREMITIES: No cyanosis or clubbing. No significant changes noted. Mild edema. NEUROLOGIC: Grossly nonfocal, but confused. LABORATORY DATA: Noted. X-rays as mentioned. IMPRESSION: 1. Congestive heart failure with acute exacerbation. 2. Chronic obstructive pulmonary disease 3. Mild shortness of breath. 4. Hypothyroidism. 5. History of breast cancer. 6. History of diabetes. RECOMMENDATIONS: Supportive medication, nebulized therapy, oxygen therapy, and diuretics. Monitor x-ray and monitor exam and assess clinically for further changes. At present, no clear need for IV steroids and we will follow up clinically for further changes and interventions. Subjective ROS Limited/Unobtainable: No Allergies: Coded Allergies: CEPHALEXIN (Verified Allergy, Unknown, 05/11/17) Objective Last 24 Hour Vital Signs Date Time Temp Pulse Resp B/P (MAP) Pulse Ox O2 Delivery O2 Flow Rate FiO2 01/28/19 12:00 97.6 76 18 124/52 (76) 100 01/28/19 11:14 96 20 99 Nasal Cannula 2.0 28 94 21 93 01/28/19 09:00 Nasal Cannula 2.0 01/28/19 08:45 153/59 01/28/19 08:44 80 153/59 01/28/19 08:44 80 153/59 01/28/19 08:00 103 01/28/19 08:00 97.8 80 18 153/59 (90) 93 01/28/19 07:10 76 19 98 Nasal Cannula 2.0 28 75 19 93 01/28/19 07:00 93 Nasal Cannula 2.0 28 01/28/19 04:00 96 01/28/19 04:00 98.4 66 22 133/66 (88) 95 01/28/19 00:00 98.0 78 19 156/64 (94) 95 01/28/19 00:00 64 01/27/19 21:00 Nasal Cannula 2.0 01/27/19 20:00 98.5 78 18 134/79 (97) 95 01/27/19 20:00 68 01/27/19 19:52 78 18 98 Nasal Cannula 2.0 28 75 18 95 01/27/19 19:48 94 Nasal Cannula 2.0 28 01/27/19 16:00 78 01/27/19 16:00 98.0 72 22 131/73 (92) 96 Intake and Output 01/27/19 01/28/19 19:00 07:00 Output Total 900 ml 1200 ml Balance -900 ml -1200 ml Output Urine Total 900 ml 1200 ml # Bowel Movements 3 1 Microbiology Date/Time Source Procedure Growth Status 01/25/19 21:09 Blood Blood Culture - Preliminary NO GROWTH AFTER 48 HOURS Resulted 01/25/19 20:50 Blood Blood Culture - Preliminary NO GROWTH AFTER 48 HOURS Resulted 01/25/19 21:10 Nasal Nares MRSA Culture - Final NO METHICILLIN RESISTANT STAPH AUREUS... Complete 01/25/19 20:50 Nasal Nares - Final Complete 01/25/19 20:50 Nasal Nares - Final Complete 01/25/19 21:10 Rectum - Final NO CARBAPENEM-RESISTANT ENTEROBACTERI... Complete 01/25/19 21:10 Rectum VRE Culture - Final NO VANCOMYCIN RESISTANT ENTEROCOCCUS ... Complete Laboratory Tests 01/28/19 10:45: White Blood Count 7.4, Red Blood Count 4.17L, Hemoglobin 12.6, Hematocrit 39.4, Mean Corpuscular Volume 95, Mean Corpuscular Hemoglobin 30.2, Mean Corpuscular Hemoglobin Concent 31.9L, Red Cell Distribution Width 13.1, Platelet Count 235, Mean Platelet Volume 5.2L, Neutrophils (%) (Auto) 79.8H, Lymphocytes (%) (Auto) 11.5L, Monocytes (%) (Auto) 5.8, Eosinophils (%) (Auto) 2.7, Basophils (%) (Auto ) 0.3, Sodium Level 139, Potassium Level 4.1, Chloride Level 101, Carbon Dioxide Level 33H, Anion Gap 5, Blood Urea Nitrogen 12, Creatinine 0.9, Estimat Glomerular Filtration Rate , Glucose Level 169H, Calcium Level 8.8, Pro-B-Type Natriuretic Peptide 67 Current Medications Medications (Trade) Dose Ordered Sig/Dannielle Route PRN Reason Start Time Stop Time Status Last Admin Dose Admin Acetaminophen (Tylenol) 650 mg Q4H PRN ORAL Mild Pain/Temp > 100.5 01/26/19 00:15 02/25/19 00:14 01/28/19 06:34 Amlodipine Besylate (Norvasc) 10 mg DAILY ORAL 01/26/19 11:00 02/25/19 10:59 01/28/19 08:44 Apixaban (Eliquis) 2.5 mg Q12HR ORAL 01/26/19 09:00 02/25/19 08:59 01/28/19 08:44 Atorvastatin Calcium (Lipitor) 10 mg BEDTIME ORAL 01/26/19 21:00 02/25/19 20:59 01/27/19 20:37 Diltiazem HCl (Cardizem CD) 240 mg DAILY ORAL 01/26/19 11:00 02/25/19 10:59 01/28/19 08:44 Docusate Sodium (Colace) 100 mg TWICE A DAY ORAL 01/26/19 09:00 02/25/19 08:59 01/27/19 08:29 Fluticasone Propionate (Flonase) 1 spray TWICE A DAY PRN NASAL To Patient Comfort 01/26/19 00:15 02/25/19 00:14 Furosemide (Lasix) 20 mg DAILY ORAL 01/26/19 09:00 02/25/19 08:59 01/28/19 08:45 Gabapentin (Neurontin) 300 mg THREE TIMES A DAY ORAL 01/26/19 09:00 02/25/19 08:59 01/28/19 13:09 Guaifenesin (Robitussin) 200 mg Q4H PRN ORAL For Cough 01/26/19 00:15 02/25/19 00:14 01/28/19 09:30 Levalbuterol HCl (Xopenex) 1.25 mg QIDRT HHN 01/28/19 11:00 02/02/19 10:59 01/28/19 11:04 Levothyroxine Sodium (Synthroid) 100 mcg DAILY@0630 ORAL 01/26/19 06:30 02/25/19 06:29 01/28/19 06:31 Losartan Potassium (Cozaar) 100 mg DAILY ORAL 01/26/19 09:00 02/25/19 08:59 01/28/19 08:45 Magnesium Hydroxide (Mom) 30 ml QHS PRN ORAL Constipation 01/26/19 00:15 02/25/19 00:14 Potassium Chloride (K-Dur) 20 meq DAILY ORAL 01/26/19 09:00 02/25/19 08:59 01/28/19 08:44 Sennosides (Senokot) 8.6 mg QHS ORAL 01/26/19 21:00 02/25/19 20:59 01/27/19 20:37 Vitamin D (Vitamin D) 5,000 intlu DAILY ORAL 01/26/19 09:00 02/25/19 08:59 01/28/19 08:43 Antonio Garcia MD Jan 28, 2019 14:26
--- NOTE | 2019-01-28 15:22 | Cardiology Report ---
APPROVED REPORT EKG Measurement Heart [id number] Normal sinus rhythm Voltage criteria for left ventricular hypertrophy Abnormal ECG
[2019-01-28 16:00] VITALS: BP 133/62
--- NOTE | 2019-01-28 19:11 | NUR ---
HAND-OFF: Report given to Jones RN. Pt remains stable.
--- NOTE | 2019-01-28 19:15 | NUR ---
NURSE NOTES: Received report from Nelson Booth RN. Patient in bed AAO X4 with no complaints of acute pain or discomfort noted. Kept clean, dry, and comfortable in bed. On bedrest for extremity weakness and safety. IV line intact and patent, on continuous cardiac monitoring per protocol. Noted generalized edema +2. Placed external catheter (Purewick) and cleaned PRN when soiled. Safety precaution in place; siderails X3 up, call light within reach, bed in lowest position, brakes and alarm on at all times. Needs and wants anticipated and attended, will continue plan of care and monitor for any changes noted. DC planning per Jyothi Andres NP
[2019-01-28 20:00] VITALS: BP 113/89
[2019-01-28] MEDS: Sennosides 8.6mg tab ORAL SCH (20:22)
[2019-01-29] VITALS: BP 119/87
[2019-01-29 04:00] VITALS: BP 124/56
--- NOTE | 2019-01-29 05:26 | NUR ---
NURSE NOTES: Patient in bed asleep with no S/S of distress at this time. Will continue to monitor
[2019-01-29 07:47] LABS: BASOPHILS % (AUTO) 0.5 % (0.0-2.0); EOSINOPHILS % (AUTO) 3.7 % (0.0-3.0); HEMATOCRIT 37.2 % (37.0-47.0); HEMOGLOBIN 12.1 G/DL (12.0-16.0); LYMPHOCYTES % (AUTO) 14.6 % (20.0-45.0); MEAN CORPUSCULAR VOLUME 94 FL (80-99); MONOCYTES % (AUTO) 8.2 % (1.0-10.0); NEUTROPHILS % (AUTO) 73.1 % (45.0-75.0); PLATELET COUNT 233 K/UL (150-450); RED BLOOD COUNT 3.95 M/UL (4.20-5.40); RED CELL DISTRIBUTION WIDTH 13.2 % (11.6-14.8); WHITE BLOOD COUNT 7.6 K/UL (4.8-10.8)
[2019-01-29 07:52] LABS: ANION GAP 5 mmol/L (5-15); BLOOD UREA NITROGEN 11 mg/dL (7-18); CALCIUM 9.2 MG/DL (8.5-10.1); CARBON DIOXIDE 32 MMOL/L (21-32); CHLORIDE 102 MMOL/L (98-107); POTASSIUM 4.3 MMOL/L (3.5-5.1); SODIUM 139 MMOL/L (136-145)
--- NOTE | 2019-01-29 07:53 | NUR ---
HAND-OFF: Report given to Amarilis Lima RN. Patient in bed AAO X4 eating breakfast with no S/S of distress. Endorsed plan of care.
[2019-01-29 08:00] VITALS: BP 155/62
--- NOTE | 2019-01-29 08:12 | NUR ---
NURSE NOTES: Report received from BRANDIE Goldman. Pt is sitting up in bed eating breakfast with no signs of distress. A+Ox3, denies pain/SOB. Respirations are even and unlabored on 2 L NC. IV site is intact and saline locked. Bed is at lowest position, brakes engaged, siderails x2, bed alarm on, and call light within reach. Pt is in stable condition at this time; will continue to monitor.
[2019-01-29] MEDS: Levalbuterol Inh UD 1.25mg/0.5ml HHN SCH ×3 (08:22→14:32)
[2019-01-29] MEDS: Losartan 50mg tab ORAL SCH (08:43)
[2019-01-29] MEDS: Eliquis 2.5mg tablet ORAL SCH (08:44)
[2019-01-29] MEDS: Vitamin D 1000 IU Tab ORAL SCH (08:44)
[2019-01-29] MEDS: dilTIAZem HCl CD 240mg cap ORAL SCH (08:45)
[2019-01-29] MEDS: Docusate 100mg cap ORAL SCH (08:45)
--- NOTE | 2019-01-29 11:36 | NUR ---
CASE MANAGEMENT: REVIEW 01/29/2019 SI:COPD EXACERBATION. T 97.6 HR 89 RR 20 B/P 155/62 SATS 95% ON 2L/NC LABS WNL IS: LIPITOR PO QHS NORVASC PO QD CARDIZEM PO QD LASIX PO QD COZAAR PO QD K DUR PO QD ELIQUIS PO Q12H XOPENEX HHN QIDRT TELE DCP: PATIENT TO BE DISCHARGED TO [facility] ONCE MEDICALLY CLEARED. PLAN OF CARE: PULMONARY HYGIENE
--- NOTE | 2019-01-29 11:51 | NUR ---
DISCHARGE DISPOSITION: PLEASE READ PATIENT TO BE DISCHARGED TO [address] T: [phone] >>> [facility] RE[facility] SKILLED TRANSFER REPORT PROVIDED TO NURSING Addendum: 01/29/19 at 1334 by Lisa Montoya TRANSPORTATION ARRANGED FOR 1500 MESSAGE LEFT FOR GUADALUPE KOVACS REGARDING DCP
[2019-01-29 12:00] VITALS: BP 129/52
--- NOTE | 2019-01-29 12:56 | Nephrology Progress Note ---
Assessment/Plan Assessment URI (cough & congestion & afebrile, denies myalgias/malaise/chills/diaphoresis/N /V/C/D) Hx: DM, breast cancer, COPD, fibromyalgia, CHF, hyperlipidemia, hypothyroidism Plan CBC, BMP in am Increasing TID breathing tx to QID Repeat BNP (2+ bilateral lower pitting edema) 2L 02 (baseline hx of COPD) May consider Prednisone tomorrow, if QID tx not effective and if BNP WNL. Subjective Subjective No new symptoms, concerns or questions at this time. Objective Objective Last 24 Hour Vital Signs Date Time Temp Pulse Resp B/P (MAP) Pulse Ox O2 Delivery O2 Flow Rate FiO2 01/29/19 12:00 97.6 71 18 129/52 (77) 94 01/29/19 11:40 76 20 98 Nasal Cannula 2.0 28 76 18 92 01/29/19 09:00 Nasal Cannula 2.0 01/29/19 08:45 72 155/62 01/29/19 08:45 72 155/62 01/29/19 08:43 155/62 01/29/19 08:26 72 20 98 Nasal Cannula 2.0 28 74 18 92 01/29/19 08:26 92 Nasal Cannula 2.0 28 01/29/19 08:00 97.6 89 20 155/62 (93) 95 01/29/19 04:00 97.7 72 19 124/56 (78) 98 01/29/19 04:00 78 01/29/19 00:00 66 01/29/19 00:00 98.5 77 20 119/87 (98) 98 01/28/19 21:00 Nasal Cannula 2.0 01/28/19 20:00 69 01/28/19 20:00 98.1 74 21 113/89 (97) 98 01/28/19 19:31 91 Nasal Cannula 2.0 28 01/28/19 19:30 69 20 96 Nasal Cannula 2.0 28 78 18 91 01/28/19 16:23 72 01/28/19 16:00 97.7 78 18 133/62 (85) 95 01/28/19 15:03 74 19 97 Nasal Cannula 2.0 28 72 19 93 Intake and Output 01/28/19 01/29/19 19:00 07:00 Intake Total 490 ml 240 ml Output Total 700 ml 500 ml Balance -210 ml -260 ml Intake Oral 490 ml 240 ml Output Urine Total 700 ml 500 ml # Bowel Movements 1 Laboratory Tests 01/29/19 05:52: White Blood Count 7.6, Red Blood Count 3.95L, Hemoglobin 12.1, Hematocrit 37.2, Mean Corpuscular Volume 94, Mean Corpuscular Hemoglobin 30.5, Mean Corpuscular Hemoglobin Concent 32.4, Red Cell Distribution Width 13.2, Platelet Count 233, Mean Platelet Volume 5.5L, Neutrophils (%) (Auto) 73.1, Lymphocytes (%) (Auto) 14.6L, Monocytes (%) (Auto) 8.2, Eosinophils (%) (Auto) 3.7H, Basophils (%) ( Auto) 0.5, Sodium Level 139, Potassium Level 4.3, Chloride Level 102, Carbon Dioxide Level 32, Anion Gap 5, Blood Urea Nitrogen 11, Creatinine 1.0, Estimat Glomerular Filtration Rate , Glucose Level 90, Calcium Level 9.2 Height (Feet): 5 Height (Inches): 7.00 Weight (Pounds): 269 General Appearance: WD/WN, no apparent distress, alert EENT: PERRL/EOMI Neck: non-tender, normal alignment, supple, normal inspection Cardiovascular: normal rate, regular rhythm, no JVD Respiratory/Chest: chest wall non-tender, lungs clear, normal breath sounds, no respiratory distress, no accessory muscle use Abdomen: normal bowel sounds, non tender, soft, no organomegaly Extremities: normal capillary refill Neurologic: oriented x 3, responsive, normal mood/affect Objective 2+ ongoing pitting edema/BNP wnl/will repeat today afebrile/no leukocytosis Stable Gisselle Andres N.P. Jan 29, 2019 12:56
--- NOTE | 2019-01-29 13:28 | Pulmonology Progress Note ---
Assessment/Plan Assessment/Plan Pulmonary Progress Note: HPI: The patient is an 83-year-old female, admitted with CHF and COPD. The patient noted to have cough, congestion, and shortness of breath for 1 week. She [facility] in [facility] and now being admitted for further care and management. The patient was not noted to have any type of aspiration. No recent travel. No ill contacts. She presented to the emergency room for further evaluation and further intervention. Imaging done in the emergency room showed pulmonary vascular congestion. The patient is admitted. She is on low-flow oxygen. As mentioned, she is a fairly poor historian, difficult to obtain at this time. PAST MEDICAL HISTORY: Notable for COPD, diabetes, breast cancer, fibromyalgia, congestive heart failure, hyperlipidemia, and hypothyroidism. MEDICATIONS: Reviewed. ALLERGIES: Reviewed. REVIEW OF SYSTEMS: Overall negative with the exception of the above. PHYSICAL EXAMINATION: GENERAL: The patient is a well-developed female, somewhat confused. VITAL SIGNS NOTED HEENT: Negative. The patient's extraocular movements are grossly intact. NECK: Supple. No adenopathy. LUNGS: With some basilar crackles, otherwise fairly clear. CARDIAC: S1 and S2. Regular rate and rhythm without clear murmurs, rubs, or gallops. ABDOMEN: Overall soft, nontender, and nondistended. EXTREMITIES: No cyanosis or clubbing. No significant changes noted. Mild edema. NEUROLOGIC: Grossly nonfocal, but confused. LABORATORY DATA: Noted. X-rays as mentioned. IMPRESSION: 1. Congestive heart failure with acute exacerbation. 2. Chronic obstructive pulmonary disease 3. Mild shortness of breath. 4. Hypothyroidism. 5. History of breast cancer. 6. History of diabetes. RECOMMENDATIONS: Supportive medication, nebulized therapy, oxygen therapy, and diuretics. Monitor x-ray and monitor exam and assess clinically for further changes. At present, no clear need for IV steroids and we will follow up clinically for further changes and interventions. KK OK to DC to SNF Subjective ROS Limited/Unobtainable: No Allergies: Coded Allergies: CEPHALEXIN (Verified Allergy, Unknown, 05/11/17) Objective Last 24 Hour Vital Signs Date Time Temp Pulse Resp B/P (MAP) Pulse Ox O2 Delivery O2 Flow Rate FiO2 01/29/19 12:00 97.6 71 18 129/52 (77) 94 01/29/19 11:40 76 20 98 Nasal Cannula 2.0 28 76 18 92 01/29/19 09:00 Nasal Cannula 2.0 01/29/19 08:45 72 155/62 01/29/19 08:45 72 155/62 01/29/19 08:43 155/62 01/29/19 08:26 72 20 98 Nasal Cannula 2.0 28 74 18 92 01/29/19 08:26 92 Nasal Cannula 2.0 28 01/29/19 08:00 97.6 89 20 155/62 (93) 95 01/29/19 04:00 97.7 72 19 124/56 (78) 98 01/29/19 04:00 78 01/29/19 00:00 66 01/29/19 00:00 98.5 77 20 119/87 (98) 98 01/28/19 21:00 Nasal Cannula 2.0 01/28/19 20:00 69 01/28/19 20:00 98.1 74 21 113/89 (97) 98 01/28/19 19:31 91 Nasal Cannula 2.0 28 01/28/19 19:30 69 20 96 Nasal Cannula 2.0 28 78 18 91 01/28/19 16:23 72 01/28/19 16:00 97.7 78 18 133/62 (85) 95 01/28/19 15:03 74 19 97 Nasal Cannula 2.0 28 72 19 93 Intake and Output 01/28/19 01/29/19 19:00 07:00 Intake Total 490 ml 240 ml Output Total 700 ml 500 ml Balance -210 ml -260 ml Intake Oral 490 ml 240 ml Output Urine Total 700 ml 500 ml # Bowel Movements 1 Laboratory Tests 01/29/19 05:52: White Blood Count 7.6, Red Blood Count 3.95L, Hemoglobin 12.1, Hematocrit 37.2, Mean Corpuscular Volume 94, Mean Corpuscular Hemoglobin 30.5, Mean Corpuscular Hemoglobin Concent 32.4, Red Cell Distribution Width 13.2, Platelet Count 233, Mean Platelet Volume 5.5L, Neutrophils (%) (Auto) 73.1, Lymphocytes (%) (Auto) 14.6L, Monocytes (%) (Auto) 8.2, Eosinophils (%) (Auto) 3.7H, Basophils (%) ( Auto) 0.5, Sodium Level 139, Potassium Level 4.3, Chloride Level 102, Carbon Dioxide Level 32, Anion Gap 5, Blood Urea Nitrogen 11, Creatinine 1.0, Estimat Glomerular Filtration Rate , Glucose Level 90, Calcium Level 9.2 Current Medications Medications (Trade) Dose Ordered Sig/Dannielle Route PRN Reason Start Time Stop Time Status Last Admin Dose Admin Acetaminophen (Tylenol) 650 mg Q4H PRN ORAL Mild Pain/Temp > 100.5 01/26/19 00:15 02/25/19 00:14 01/29/19 08:45 Amlodipine Besylate (Norvasc) 10 mg DAILY ORAL 01/26/19 11:00 02/25/19 10:59 01/29/19 08:45 Apixaban (Eliquis) 2.5 mg Q12HR ORAL 01/26/19 09:00 02/25/19 08:59 01/29/19 08:44 Atorvastatin Calcium (Lipitor) 10 mg BEDTIME ORAL 01/26/19 21:00 02/25/19 20:59 01/28/19 20:22 Diltiazem HCl (Cardizem CD) 240 mg DAILY ORAL 01/26/19 11:00 02/25/19 10:59 01/29/19 08:45 Docusate Sodium (Colace) 100 mg TWICE A DAY ORAL 01/26/19 09:00 02/25/19 08:59 01/29/19 08:45 Fluticasone Propionate (Flonase) 1 spray TWICE A DAY PRN NASAL To Patient Comfort 01/26/19 00:15 02/25/19 00:14 Furosemide (Lasix) 20 mg DAILY ORAL 01/26/19 09:00 02/25/19 08:59 01/29/19 08:44 Gabapentin (Neurontin) 300 mg THREE TIMES A DAY ORAL 01/26/19 09:00 02/25/19 08:59 01/29/19 08:44 Guaifenesin (Robitussin) 200 mg Q4H PRN ORAL For Cough 01/26/19 00:15 02/25/19 00:14 01/28/19 09:30 Levalbuterol HCl (Xopenex) 1.25 mg QIDRT HHN 01/28/19 11:00 02/02/19 10:59 01/29/19 11:37 Levothyroxine Sodium (Synthroid) 100 mcg DAILY@0630 ORAL 01/26/19 06:30 02/25/19 06:29 01/29/19 06:02 Losartan Potassium (Cozaar) 100 mg DAILY ORAL 01/26/19 09:00 02/25/19 08:59 01/29/19 08:43 Magnesium Hydroxide (Mom) 30 ml QHS PRN ORAL Constipation 01/26/19 00:15 02/25/19 00:14 Potassium Chloride (K-Dur) 20 meq DAILY ORAL 01/26/19 09:00 02/25/19 08:59 01/29/19 08:45 Sennosides (Senokot) 8.6 mg QHS ORAL 01/26/19 21:00 02/25/19 20:59 01/28/19 20:22 Vitamin D (Vitamin D) 5,000 intlu DAILY ORAL 01/26/19 09:00 02/25/19 08:59 01/29/19 08:44 Antonio Garcia MD Jan 29, 2019 13:28
--- NOTE | 2019-01-29 13:31 | NUR ---
NURSE NOTES: Per NHUNG Andres patient to be discharged pending 's clearance. Spoke with who said "okay to DC." Let Dmitry know and she said to dc with home meds.
--- NOTE | 2019-01-29 13:44 | NUR ---
NURSE NOTES: Spoke with pt's daughter, Padmaja and made her aware of patient's discharge to [facility].
[2019-01-29] MEDS: guaiFENesin 100mg/5ml Liq ud ORAL PRN (14:42)
--- NOTE | 2019-01-29 14:54 | NUR ---
NURSE NOTES: Report given to Juan M, the nursing electronics processing supervisor @ [facility].
--- NOTE | 2019-01-29 15:55 | NUR ---
NURSE NOTES: Report given to [facility] ambulance personnel. Patient in stable condition. No pain/SOB noted. Patient had bowel movement and was cleaned before discharge. IV site, wristband, and air sampling and monitoring removed. Patient is in stable condition and leaving with all her belongings. Patient had upper and lower dentures in her mouth and cell phone in hand upon discharge. Patient discharged safely with [facility] via gurney.
--- NOTE | 2019-01-29 21:20 | Discharge Summary ---
Discharge Summary Discharge Summary _ DATE OF ADMISSION: 01/25/2019 DATE OF DISCHARGE: 01/29/2019 DISCHARGED BY: Dr. Ghosh REASON FOR ADMISSION: 83 years old female with DNR/DNI status, resident of alf facility, with past medical history of COPD, diabetes mellitus type 2, hypothyroidism, hyperlipidemia, fibromyalgia, history of breast cancer, presented with complaint of cough congestion and shortness of breath for the past 7 days. Patient denies chest pain. Patient denies vomiting. Patient reported productive cough. Vital signs reveal no fever blood pressure was elevated 155/ 85. Pulse oximetry was stable on room air. Laboratory work-up revealed no leukocytosis stable hemoglobin hematocrit. Stable electrolytes and renal parameters. Glucose 116. Stable LFT. Troponin negative. proBNP 93. EKG reveals sinus rhythm no acute ischemic changes. Chest x-ray demonstrated mild pulmonary vascular congestion. Patient subsequently admitted to telemetry floor for further management. In emergency department patient received breathing treatment with some improvement in her system. However she had a 10 beats of SVT after albuterol treatment. CONSULTANTS: pulmonary Dr. Plasencia [facility] COURSE: [] Patient admitted to telemetry floor. Oil Exploration Engineer follow. Supplemental oxygen provided to keep pulse oximetry above 92%. Pulmonary toilet provided with Xopenex instead of albuterol. Patient was closely monitored. Patient started on diuretic with close monitoring of volumes and cardiorenal parameters. No need for IV steroids COPD appears to be fairly stable as per caving guide. Blood pressure was managed with calcium channel lena. And angiotensin receptor lena. Levothyroxine continued. Antitussive provided as needed. Anticoagulation with Eliquis continued. Bowel regimen instituted. Supportive care provided. Renal parameters electrolytes are closely monitor electrolytes corrected as needed hyperkalemia corrected patient clinically stabilized and was ready for patient was discharged home with home health services. Follow up with primary care provider in one week. longterm for continuation of care for history of pulmonary embolism Venous duplex bilateral lower extremity reveal no evidence of acute DVT. FINAL DIAGNOSES: Congestive heart failure with acute exacerbation Upper respiratory infection COPD, fairly stable Mild shortness of breath Hypothyroidism History of breast cancer Diabetes mellitus Hypertension Hyperlipidemia Neuropathy DISCHARGE MEDICATIONS: See Medication Reconciliation list. DISCHARGE INSTRUCTIONS: Patient was discharged to the alf facility. Follow up with medical doctor at the facility. I have been assigned to dictate discharge summary for this account. I was not involved in the patient's management. Kiersten Gastelum NP Jan 29, 2019 21:20
== END 2019-01-29 15:55 | DRG 293 ==
LOC: EDBD 20:20 → EMR 20:57 → 2E 21:39 → EDBEDREQ 21:45 → 2E 22:45
DX: I11.0 Hypertensive heart disease with heart failure (principal); J44.9 Chronic obstructive pulmonary disease, unspecified; I50.23 Acute on chronic systolic (congestive) heart failure; E03.9 Hypothyroidism, unspecified; E11.9 Type 2 diabetes mellitus without complications; E78.5 Hyperlipidemia, unspecified; Z85.3 Personal history of malignant neoplasm of breast; G62.9 Polyneuropathy, unspecified; Z88.1 Allergy status to other antibiotic agents; Z66 Do not resuscitate; M79.7 Fibromyalgia; J98.8 Other specified respiratory disorders
CPT/HCPCS: 36415; 71045; 80048; 80053; 83880; 84132; 84484; 85025; 86710; 87040; 87081; 93005; 93970; 94640; 94664; 99285; J7620; J8499